=== PATIENT | male | born 1955 | race Caucasian/White ===

== ENCOUNTER 2018-05-20 13:55 | Outpatient (CLI) | payer BC, OTHER ==
--- NOTE | 2018-05-20 16:17 | CT ---
CT HEAD NONCONTRAST: 05/20/18 HISTORY: Fall. Head injury. Vertigo. Headache. FINDINGS: No comparison. Within the posterolateral aspect of the left posterior fossa is a slightly heterogeneo us hyperdense mass with broad base to the inner calvarium. It measures up to 3.8 x 3.0 cm greatest di ameters. Large amount of surrounding vasogenic edema in the left cerebellar hemisphere with approxima tely 0.9 cm rightward shift of the fourth ventricle. There is effacement of the basilar cisterns. The mass demonstrates characteristics suggestive of an extra-axial process. At the medial margin of the left frontal lobe, a 0.4 cm hyperdense lesion is favored to be cortical. Minimal distention of the temporal horns of the lateral ventricles. Septum pellucidum is midline. Chr onic appearing opacification of the left mastoid air cells. IMPRESSION: Large hyperdense left posterior fossa mass, favored to be extra-axial, with large amount of surroundi ng vasogenic edema and compression of the fourth ventricle. Possible meningioma. Tiny hyperdense left medial frontal lobe hyperdense mass, favored to be cortical. This raises concern for metastatic disease. Please consider additional evaluation with MRI brain, with and without gadol inium contrast. Findings were called to Dr. Carreon at 1434 hours. Code CR POS: SARA
== END 2018-05-20 13:56 | disposition home or self-care (01) ==
LOC: NAV CT 13:55
PROVIDERS: ATTEND Family Medicine
DX: S06.9X9A Unspecified intracranial injury with loss of consciousness of unspecified duration, initial encounter (principal); R51 Headache; R22.0 Localized swelling, mass and lump, head; G93.6 Cerebral edema
CPT/HCPCS: 70450

== ENCOUNTER 2019-04-06 15:38 | Inpatient (IN) | payer BC ==
[2019-04-06] MEDS ORDERED: Baclofen 10 MG TAB PO SCH (21:00)
[2019-04-06] MEDS ORDERED: BACLOFEN 5 MG PO SCH (21:00)
[2019-04-06] MEDS ORDERED: Simvastatin 40 MG TAB PO SCH ×2 (21:00)
[2019-04-06 21:19] LABS: Bacteria/HPF 3+ HPF (None Seen); RBC/HPF 0-3 HPF (0-3); Squamous Epithelial 0-3 HPF (0-3)
[2019-04-06] MEDS: Enoxaparin Sodium 40 MG/0.4 ML SYRINGE SC SCH (23:02)
--- NOTE | 2019-04-07 03:10 | HP ---
HISTORY OF PRESENT ILLNESS: Mr. Zurita is a very pleasant 63-year-old white male, seen in my office mid May with a headache. CT scan revealed a large 3 cm cerebellar mass and a smaller frontal lobe mass. He was referred to Dr. Aakash Chavez, who proceed with a stereotactic resection of the left cerebellar tumor consistent with meningioma, and resection of left infratentorial posterior fossa meningioma. Postoperatively, he was in the intensive care unit for multiple days. Postoperative day #4, the patient was nearing discharge for home. Pathology was sent to 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 It had been invasive to his temporal bone, the petrous region, and the mastoid air cells along the sigmoid sinus and internal jugular vein. Surgery was successful in debulking the portion of the sinus. The patient was neurologically intact and doing very well with improvement even with his cerebellar findings. He was sent home on Decadron taper. The patient was discharged home on 05/30/2018, but returned back to the emergency room on 06/02/2018 secondary to severe headache that was not responsive to hydrocodone. He was seen in the emergency room and readmitted to the hospital. After significant workup, the patient was found to have hydrocephalus and the EVD was placed. Unfortunately, the patient had significant neurological decline. Unfortunately, he also developed Serratia meningitis and underwent a wound washout on 06/15/[address] Chavez. It eventually was controlled with multiple antibiotics. The patient also was found to have a right lower extremity DVT and had to have an IVC filter placed. He was started on Lovenox and then transitioned to Eliquis. Eventually, he stabilized and was transferred to [facility] in [place] on 07/09/2018. Further history is not available at this time until the patient is transferred from [facility] in [facility] to [facility] today, which is 04/06/2019. The patient did recently develop a urinary tract infection, became septic. He was treated with antibiotics and presently not on any antibiotics. He was transferred to [facility] on 04/06/2019. PRESENT MEDICATIONS: Reveal the patient is presently on the following; 1. Norvasc 10 mg daily. 2. Aspirin 81 mg daily. 3. Baclofen 5 mg at bedtime. 4. Benazepril or Lotensin 20 mg daily. 5. Voltaren 75 mg at bedtime. 6. Voltaren 75 mg p.o. b.i.d. 7. Lovenox 40 mg subcu q.24 hours. 8. The patient did have his influenza vaccine quadrivalent today, on 04/07/2019. 9. Metoprolol 100 mg daily. 10. Provigil 200 mg once daily. 11. Protonix 40 mg daily. 12. Amantadine 50 mg b.i.d. 13. Simvastatin 40 mg daily. 14. Effexor 75 mg daily. ALLERGIES: THE PATIENT IS NOTED TO BE ALLERGIC TO TOBRAMYCIN AND CEFEPIME. FAMILY HISTORY: Reveals the patient's mother has heart disease. The patient's paternal grandfather had colon cancer. The patient's maternal grandfather had kidney cancer. SOCIAL HISTORY: Reveals the patient presently does not smoke and has not for a while. The patient does have a past history of alcohol, but no drugs. The patient is . Presently, the patient has a PEG tube in the left upper quadrant, in which he gets all of his feedings through. The patient's PEG tube was started on 06/29/2018. The patient has a 16-Salvadorean urethral catheter indwelling, which has been indwelling and was placed on 04/04/2019. PAST MEDICAL HISTORY: 1. Malignant melanoma. 2. Hydrocephalus. 3. Altered mental status. 4. Hypertension. 5. Hyperlipidemia. 6. Hypoglycemia. 7. Somnolence. 8. Recent urinary tract infection. 9. Severe sepsis. 10. Status post IVC filter. 11. History of DVT. PAST SURGICAL HISTORY: 1. 07/15/2018, rosemary hole for ventricular puncture and insertion of ventricular pleural shunt on 07/21/2018. 2. Tracheostomy on 07/21/2018 along with pleurodesis of the lung. REVIEW OF SYSTEMS: Unable to be obtained because the patient is nonverbal at this time. He walked in saying his name. He does open his eyes, but does not really respond. I could not get a nod yes or no. PHYSICAL EXAMINATION: VITAL SIGNS: On arrival revealed blood pressure 116/83; this evening, blood pressure 151/84. Respirations 16 to 22, O2 saturation 95% to 96% on room air, T-max 98.9. Pulse is 98 to 99. GENERAL: This is a well-developed, well-nourished, but much older looking than expected white male, in no apparent distress at this time. HEENT: Reveals well-healed craniotomy scars. Nose and throat are somewhat dry. The patient is clean, well shaved with a mustache, well trimmed acuna. He seemed to be in no distress, but is unable to communicate to answer any of my questions. NECK: Seems to be supple without any masses, nodes, or bruits. CHEST: Clear to auscultation. No rales, no rhonchi, no wheezes, and no cough is noted. HEART: Reveals a regular rate and rhythm. Slightly tachy at 98. No murmurs, gallops, or rubs are noted. ABDOMEN: Soft, nontender with multiple abundant bowel sounds in all 4 quadrants. PEG tube is noted to be in left upper quadrant. : Reveals the patient is in the diaper and we did not remove that at this time. EXTREMITIES: Reveal rather stiff upper extremities with significant flexion contractures in the lower extremities. DIAGNOSTIC STUDIES: Radiology results over the last 7 days include; 1. MRI of the brain without IV contrast, which was done 04/01/2019 secondary to altered mental status. Impression, limited evaluation of possible punctate acute infarct in the parasagittal left anterior frontal lobe. No gross evidence of an acute infarct or hemorrhage. 2. CT scan of the brain on 03/30/2019 reveals unremarkable internal carotid, middle cerebral arteries, anterior cerebral arteries, basilar system, posterior cerebral arteries and venous opacifications. 3. CTA of the neck revealed no flow-limiting stenosis and no acute findings. 4. CT of the brain on 03/30/2019 revealed chronic ischemic and surgical changes without discernible acute infarct or hemorrhage. 5. Esophageal swallowing function with cine video done 03/29/2019 revealed history of dysphagia with trace laryngeal penetration with thin liquids. 6. Urine culture reveals Pseudomonas sensitive to tobramycin. Neurological exam done by Dr. Dumont on 04/04/2019. The patient's neurological exam at that time revealed the patient did not orient to name or follow one-step commands. Pupils were 3 mm and reactive bilaterally. There were some mild facial asymmetry with the tongue being midline. The patient had some left hemiparesis and bilateral contractures. ASSESSMENT: 1. Hydrocephalus. 2. Distant removal of malignant meningioma. 3. Status post inferior vena cava filter. 4. Severe sepsis. 5. Recent urinary tract infection. 6. Altered mental status. 7. Hypertension. 8. Hyperlipidemia. 9. Hypoglycemia. 10. Somnolence. 11. Dysphagia. 12. Right-sided weakness. PLAN: 1. The patient has been transferred to the SNF Unit at [facility] for physical therapy and occupational therapy. The patient will be followed closely with a repeat urinalysis and culture and sensitivity. The patient was started on amikacin for 4 days and changed to tobramycin changed back to amikacin to finish 7 days on antibiotics. 2. We will continue to monitor the patient's toxic metabolic encephalopathy since his mentation fluctuates. His amantadine was stopped and Provigil was started. He continues to have transient worsening weakness in the face of negative CT angiogram as possible small CVA by MRI. 3. Start aspirin. 4. Decrease tube feedings as the patient is able to adjust and improved with his dysphagia. 5. Continue statin drug for his hyperlipidemia. 6. Continue to monitor the patient for anemia. 7. Monitor the patient closely for constipation. 8. Consider magnesium citrate if needed. 9. Speech therapy. 10. Physical therapy and occupational therapy evaluation. Job ID: [id number]
[2019-04-07] MEDS ORDERED: Bisacodyl 10 MG SUPP PR PRN (06:46)
[2019-04-07] MEDS ORDERED: AMANTADINE 10 MG/ML PER TUBE SCH (07:30)
[2019-04-07] MEDS ORDERED: AMANTADINE HCL PO SCH (07:30)
[2019-04-07] MEDS ORDERED: AMANTADINE 10 MG/ML PO SCH (07:30)
[2019-04-07] MEDS: Famotidine 20 MG TAB PER TUBE SCH ×3 (08:24→19:51)
[2019-04-07] MEDS: Venlafaxine HCl 25 MG TAB PER TUBE SCH (08:45)
[2019-04-07] MEDS: Aspirin Chewable 81 MG TAB PER TUBE SCH ×3 (08:45→09:55)
[2019-04-07] MEDS: Docusate Sodium 100 MG/10 ML UDCUP PER TUBE SCH ×5 (08:45→19:51)
[2019-04-07] MEDS: Tamsulosin HCl 0.4 MG CAP PO SCH (08:46)
[2019-04-07] MEDS: Pantoprazole 40 MG GRANULES PACKET PER TUBE SCH ×2 (08:47→09:54)
[2019-04-07] MEDS: Polyethylene Glycol 3350 17 GM Packet PER TUBE SCH (08:47)
[2019-04-07] MEDS: Ascorbic Acid 500 mg Chewable Tablet PER TUBE SCH (08:47)
[2019-04-07] MEDS: Modafinil 100 MG TAB PER TUBE SCH (08:47)
[2019-04-07] MEDS ORDERED: Aspirin 81 mg Enteric Coated Tablet PO SCH ×2 (09:00)
[2019-04-07] MEDS ORDERED: Non-Formulary Item 1 EACH (Omeprazole [Omeprazole] 40 MG) PO SCH (09:00)
[2019-04-07] MEDS ORDERED: Venlafaxine HCl 25 MG TAB PO SCH (09:00)
[2019-04-07] MEDS ORDERED: Amlodipine 5 MG TAB PO SCH (09:00)
[2019-04-07] MEDS ORDERED: METOPROLOL SUCCINATE 100 MG PO SCH (09:00)
[2019-04-07] MEDS ORDERED: VENLAFAXINE HCL 75 MG PO SCH (09:00)
[2019-04-07] MEDS ORDERED: Modafinil 100 MG TAB PO SCH ×2 (09:00)
[2019-04-07] MEDS ORDERED: Amlodipine 5 MG TAB PER TUBE SCH (09:00)
[2019-04-07] MEDS ORDERED: FLU VACC QS2019-20(6MOS UP)/PF 60 MCG/0.5 ML SYRINGE IM ONE (09:00)
[2019-04-07] MEDS ORDERED: Enoxaparin Sodium 40 MG/0.4 ML SYRINGE SC SCH (09:00)
[2019-04-07] MEDS ORDERED: Non-Formulary Item 1 EACH (Amlodipine Besylate/Benazepril [Amlodipine Besylate/Benazepril PO SCH (09:00)
[2019-04-07 12:22] LABS: Bilirubin Negative (Negative); Blood, Urine Trace (Negative); Clarity Cloudy (Clear); Glucose, Urine (Dipstick) Negative (Negative); Leukocyte Moderate (Negative); Nitrite Negative (Negative); Protein, Urine (Dipstick) Trace mg/dL (Neg-Trace); Urobilinogen 0.2 mg/dL (Less than 2)
[2019-04-07 12:29] LABS: RBC/HPF 0-3 HPF (0-3); Squamous Epithelial 0-3 HPF (0-3)
[2019-04-07 12:30] LABS: Bacteria/HPF 2+ HPF (None Seen)
--- NOTE | 2019-04-07 16:44 | PRG ---
DATE OF SERVICE: 04/07/2019 SUBJECTIVE: Mr. Zurita is a pleasant 63-year-old white male, who had a large glioblastoma removed by Dr. Aakash Chavez on 05/26/2018. He did well, was sent home, returned with meningitis caused by Serratia. He had several complications, admitted to the intensive care unit. Eventually, he was controlled, but then went to an LTAC for physical therapy and occupational therapy in [place]. He has been in out of the hospital and LTAC since then. He was transferred to [facility] on 04/06/2019 for physical therapy and occupational therapy, status post small CVA along with urinary tract infection and sepsis approximately 2 weeks ago. He is here to increase his strength, stamina, and hopefully to get some speech therapy so he can start swallowing again and eating. OBJECTIVE: VITAL SIGNS: Today reveal blood pressure this morning 151/84, pulse 97 to 98, respirations 18 to 22, T-max 98.3, O2 saturation 95% on room air. Urinalysis revealed 7 to 10 WBCs per high-power field as a repeat today of 11/20 per high-power field. Culture and sensitivity are pending. Laboratory for tomorrow morning is done including CBC, comprehensive metabolic panel, pre-albumin and C-reactive protein. PHYSICAL EXAMINATION: GENERAL: This is a well-developed, white male who looks much older than stated age. The patient does look around and responded when I asked him if he would try to say some words, and he said "try." The patient does not respond spontaneous to yes and no questions with words, but will nod yes or no. HEENT: Reveals well-healed craniotomy scars. Nose and throat are slightly dry. NECK: Supple without masses, nodes, or bruits. CHEST: Clear to auscultation. No rales, no rhonchi, no wheezes, and no cough is noted. HEART: Reveals a regular rate and rhythm, still tachy at 97 to 98. No murmurs, gallops, or rubs are noted. ABDOMEN: Soft, nontender with lots of bowel sounds. The patient continues to have significant flexion contractures in his right lower extremity, which can be worked out straight, but has significant difficulty doing that. His right upper extremities are somewhat stiff, but not flexion contraction. : Deferred. Blum catheter is in place. ASSESSMENT: 1. Post removal of malignant glioblastoma approximately 11 months ago. 2. Hydrocephalus with shunt. 3. Recent severe sepsis. 4. Recent urinary tract infection. 5. Altered mental status. 6. Hypertension. 7. Hyperlipidemia. 8. Hypoglycemia. 9. Dysphagia. 10. Right-sided weakness. 11. Somnolence. 12. Status post inferior vena cava filter. 13. Generalized weakness. PLAN: 1. Continue to monitor the patient's blood pressure closely, adjust medications if needed. 2. Continue to monitor the patient's urine and await culture and sensitivities. 3. Repeat lab work tomorrow morning. 4. Continue physical therapy and occupational therapy. 5. Continue consultation for speech therapy. 6. Continue aspirin. 7. Continue tube feedings at this time until the patient is cleared to swallow. 8. Continue statin drugs. 9. Continue to monitor the patient for anemia. 10. Monitor the patient for constipation. 11. Physical therapy, occupational therapy, and speech therapy. Job ID: [id number]
[2019-04-07] MEDS: Atorvastatin Calcium 20 MG TAB PER TUBE SCH (19:51)
[2019-04-07] MEDS: Enoxaparin Sodium 40 MG/0.4 ML SYRINGE SC SCH (19:54)
[2019-04-07] MEDS ORDERED: Baclofen 10 MG TAB PER TUBE SCH (21:00)
[2019-04-07] MEDS ORDERED: Simvastatin 40 MG TAB PER TUBE SCH (21:00)
[2019-04-08 05:25] LABS: #Eosinphils 0.2 thou/uL (0.0-0.7); #Lymphocytes 1.4 thou/uL (1.20-3.40); #Monocytes 0.4 thou/uL (0.11-0.59); #Neutrophils 4.2 thou/uL (1.40-6.50); %Basophils 0.7 % (0.0-1.0); %Eosinophils 3.5 % (0.0-10.0); %Lymphocytes 21.9 % (21.0-51.0); %Monocytes 6.7 % (0.0-10.0); %Neutrophils 67.2 % (42.0-75.0); Hemoglobin 9.6 g/dL (14.0-18.0); Mean Corpuscular HGB CONC 33.2 g/dL (32.0-36.0); Mean Corpuscular Hemoglobin 29.5 pg (27.0-31.0); Mean Corpuscular Volume 88.8 fL (78.0-98.0); Mean Platelet Volume 8.3 fL (7.4-10.4); Platelet Count 198 thou/uL (130-400); Red Blood Cell (RBC) Count 3.25 mill/uL (4.70-6.10); White Blood Cell (WBC) Count 6.3 thou/uL (4.8-10.8)
[2019-04-08 05:44] LABS: ALT (SGPT) 57 U/L (8-55); AST (SGOT) 34 U/L (5-34); Albumin 3.5 g/dL (3.4-4.8); Alkaline Phosphatase 119 U/L (40-110); Anion Gap 15 mmol/L (10-20); BUN (Urea Nitrogen) 28 mg/dL (8.4-25.7); Bilirubin, Total 0.2 mg/dL (0.2-1.2); CRP (Inflammatory) Less than 0.50 mg/dL (= or < 0.5); Calc. Creatinine Clearance 96 mL/min (70-130); Carbon Dioxide 29 mmol/L (23-31); Chloride 101 mmol/L (98-107); Estimated GFR-MDRD Greater than 90; Globulin 3.2 g/dL (2.4-3.5); Glucose 141 mg/dL (80-115); Potassium 3.7 mmol/L (3.5-5.1); Protein, Total 6.7 g/dL (5.8-8.1); Sodium 141 mmol/L (136-145)
[2019-04-08] MEDS: Multivitamins CHEW w/Iron Tablet PER TUBE SCH (08:15)
[2019-04-08] MEDS: Pantoprazole 40 MG GRANULES PACKET PER TUBE SCH (09:45)
[2019-04-08] MEDS: Tamsulosin HCl 0.4 MG CAP PO SCH (09:45)
[2019-04-08] MEDS: Ascorbic Acid 500 mg Chewable Tablet PER TUBE SCH (09:45)
[2019-04-08] MEDS: Aspirin Chewable 81 MG TAB PER TUBE SCH (09:45)
[2019-04-08] MEDS: Docusate Sodium 100 MG/10 ML UDCUP PER TUBE SCH ×3 (09:45→20:43)
[2019-04-08] MEDS: Polyethylene Glycol 3350 17 GM Packet PER TUBE SCH (09:45)
[2019-04-08] MEDS: Modafinil 100 MG TAB PER TUBE SCH (09:45)
[2019-04-08] MEDS: Famotidine 20 MG TAB PER TUBE SCH ×2 (09:45→20:44)
[2019-04-08] MEDS: Venlafaxine HCl 25 MG TAB PER TUBE SCH (09:45)
[2019-04-08] MEDS ORDERED: Baclofen 10 MG TAB PER TUBE SCH (10:30)
[2019-04-08] MEDS ORDERED: Ciprofloxacin 500 MG TAB PER TUBE SCH (13:30)
[2019-04-08] MEDS ORDERED: Sodium Chloride 0.9% 0 ML ONE (16:18)
--- NOTE | 2019-04-08 19:54 | PRG ---
DATE OF SERVICE: 04/08/2019 Mr. Zurita is a pleasant 63-year-old white male, who had a large glioblastoma removed by Dr. Aakash Chavez on 05/26/2018. He did well, was sent home, but returned with a meningitis caused by Serratia. He had several complications, admitted to the intensive care unit. This eventually was controlled and then he was transferred to [facility] in [place], [place] for PT and OT. He was transferred in and out of the LTAC back and forth to the hospital for multiple other problems including PEG tube placement, small TIAs, urinary tract infections, recurrent. He eventually was stabilized and now is being transferred out of [facility] in [place] to swing bed at [facility] for PT, OT, and Speech Therapy. Two weeks ago, he did have urinary tract infection, became septic, and has small CVA. He is here to increase his strength, stamina, and swallowing abilities. SUBJECTIVE: The patient when I saw him this morning, was more conversational to me. He did say something like what we are going to do today in a sentence to me, but it was rather rapid and quiet. I did hear that and he did answer questions and occasionally nod yes and no. He seems much more alert and awake to me today. His is not at bedside this morning. LABORATORY DATA: Reveals a white count of 6300 with a hemoglobin 9.6, hematocrit 28.9, platelet count 198,000. Electrolytes reveal sodium 141, potassium 3.7, chloride 101, carbon dioxide 29 with a BUN 28, creatinine 0.77, and GFR greater than 90. Sugar was 141. ALT was slightly elevated at 57. C-reactive protein was less than 0.5. Pre-albumin was noted to be 28. TSH was 2.05. Urinalysis revealed 11 to 20 wbc's. Culture is pending, but growing a gram-negative sandra. We did elect to put him on ciprofloxacin 500 mg b.i.d. and await the culture. I did call the lab and will be out for another day or two. OBJECTIVE: VITAL SIGNS: Reveal blood pressure today 137/89, pulse 97, respirations 18, O2 saturation 96% on room air, T-max 97.6. GENERAL: This is a well-developed, thin 63-year-old white male, in no apparent distress at this time. HEENT: Reveals normocephalic and nontraumatic cranium. Pupils are equally round and reactive. Extraocular movements intact. Nose and throat are slightly dry. NECK: Supple without masses, nodes, or bruits. CHEST: Clear to auscultation. No rales, rhonchi, or wheezes are heard. HEART: Reveals a regular rate and rhythm without murmurs, gallops, or rubs. ABDOMEN: Soft, nontender without organomegaly. Flexion contractures in right lower extremity seem a little bit better when he is sitting in a wheelchair. Right upper extremities are stiff, but not flexion contracture. : Deferred. Blum catheter is in place. I did talk with therapy. Apparently, he is having a lot of increased tone and spasm, not so much muscle contraction yet. He thinks it is less contractures or more increased muscle tone, so we will try him on some baclofen 5 mg b.i.d. IMPRESSION: 1. Status post removal of malignant glioblastoma approximately 10 months ago. 2. Hydrocephalus with shunt. 3. Severe sepsis, which was recent. 4. Recent urinary tract infection. 5. Altered mental status. 6. Hypertension. 7. Hyperlipidemia. 8. Hypoglycemia. 9. Dysphagia. 10. Right-sided weakness. 11. Somnolence. 12. Status post inferior vena cava filter. 13. Generalized weakness. 14. New urinary tract infection. We will start him on Cipro at this time. PLAN: 1. Continue to monitor the patient's blood pressure closely and adjust medications as needed. 2. Continue to monitor the patient's urine, await culture and sensitivities, but start the patient on Cipro 500 b.i.d. at this time. 3. Repeat lab work tomorrow. 4. Continue physical therapy and occupational therapy. 5. Continue speech therapy. 6. Continue aspirin. 7. Tube feedings at this time until the patient is cleared to swallow. 8. Continue statin drugs. 9. Continue to monitor the patient for anemia. 10. Monitor the patient for constipation. 11. Physical therapy, occupational therapy, and speech therapy. Job ID: [id number]
[2019-04-08] MEDS: Atorvastatin Calcium 20 MG TAB PER TUBE SCH (20:43)
[2019-04-08] MEDS: Baclofen 10 MG TAB PER TUBE SCH (20:44)
[2019-04-08] MEDS: Ciprofloxacin 500 MG TAB PER TUBE SCH (20:44)
[2019-04-08] MEDS: Enoxaparin Sodium 40 MG/0.4 ML SYRINGE SC SCH (20:45)
[2019-04-09] MEDS: Ciprofloxacin 500 MG TAB PER TUBE SCH ×2 (05:29→20:35)
[2019-04-09] MEDS: Polyethylene Glycol 3350 17 GM Packet PER TUBE SCH (08:50)
[2019-04-09] MEDS: Pantoprazole 40 MG GRANULES PACKET PER TUBE SCH (08:50)
[2019-04-09] MEDS: Modafinil 100 MG TAB PER TUBE SCH (08:50)
[2019-04-09] MEDS: Ascorbic Acid 500 mg Chewable Tablet PER TUBE SCH (08:51)
[2019-04-09] MEDS: Tamsulosin HCl 0.4 MG CAP PO SCH (08:51)
[2019-04-09] MEDS: Baclofen 10 MG TAB PER TUBE SCH ×2 (08:51→20:35)
[2019-04-09] MEDS: Venlafaxine HCl 25 MG TAB PER TUBE SCH (08:51)
[2019-04-09] MEDS: Famotidine 20 MG TAB PER TUBE SCH ×2 (08:52→20:35)
[2019-04-09] MEDS: Aspirin Chewable 81 MG TAB PER TUBE SCH (08:52)
[2019-04-09] MEDS: Multivitamins CHEW w/Iron Tablet PER TUBE SCH (08:52)
[2019-04-09] MEDS: Docusate Sodium 100 MG/10 ML UDCUP PER TUBE SCH ×3 (08:52→20:35)
--- NOTE | 2019-04-09 15:17 | PRG ---
DATE OF SERVICE: 04/09/2019 SUBJECTIVE: Mr. Zurita is a very pleasant 63-year-old white male patient of mine, who had a large glioblastoma. It was removed by Dr. Aakash Chavez on 05/26/2018. The patient did very well, sent home but returned with meningitis caused by Serratia. He had a maggy course for several months and was in and out of the hospital and in and out of the LTAC. Eventually, he was stabilized and transferred to rehab facility. He did fairly well, ended up back at [facility] in [place] with sepsis, urinary tract infection, and another stroke. Eventually, he was stabilized and now was transferred to [facility] in [place] for physical therapy, occupational therapy, and speech therapy. The patient is actually much more awake and alert and say "paramjit cee, how are you doing today" is what he told me this morning. The only difference we have done is we have started him on Cipro 500 mg b.i.d. for 10 days, which is 20 doses because of a recurrent urinary tract infection which he is growing gram-negative rods in which the sensitivity is still not available yet. The other thing we have done is increase the baclofen from 5 mg once a day at bedtime to 5 mg b.i.d. for his intense tone and spasticity. OBJECTIVE: VITAL SIGNS: Today reveal blood pressure 146/78, pulse 91 to 99, respirations 19 to 20, O2 saturation 94% to 99% on room air, T-max 98.7. PHYSICAL EXAMINATION: GENERAL: This is a well-developed, well-nourished, pleasant 63-year-old white male, in no apparent distress at this time. HEENT: Normocephalic and nontraumatic cranium. Pupils are equal, round, and reactive. Extraocular movements are intact. Nose and throat are still dry. NECK: Supple without masses, nodes, or bruits. CHEST: Clear to auscultation. No rales, rhonchi, wheezes, or cough is heard. HEART: Reveals a regular rate and rhythm without murmurs, gallops, or rubs. ABDOMEN: Soft, nontender without organomegaly. Normal bowel sounds are noted. : Deferred. EXTREMITIES: Significant increase in tone and possible some flexion contractures in his right leg. Physical therapy and thinks he has more increased muscle tone and not really flexion contractures. The patient has been started on baclofen 5 mg b.i.d. and we may increase that. IMPRESSION: 1. Surgical excision of malignant glioblastoma about 10 months ago. 2. Hydrocephalus with shunt. 3. Recent recurrent urinary tract infection, presently on Cipro 500 b.i.d. 4. Recent sepsis. 5. Metabolic encephalopathy, slowly clearing. 6. Altered mental status, improving. 7. Hypertension. 8. Hyperlipidemia. 9. Hyperglycemia. 10. Dysphagia. 11. The patient did swallow some ice chips today. 12. Right-sided weakness. 13. Somnolence. 14. Status post inferior vena cava filter. 15. Generalized weakness. PLAN: 1. Continue Cipro 500 mg b.i.d. for a total of 10 days until the patient's culture and sensitivity return. 2. Continue to get the patient out of bed as much as possible. 3. Continue to monitor the patient's blood pressure closely. 4. Continue aspirin. 5. Continue tube feedings, which we may progress to bolus feedings next week. 6. Continue statin drugs. 7. Continue to monitor the patient for anemia. 8. Continue physical therapy and occupational therapy. 9. Continue speech therapy. Job ID: [id number]
[2019-04-09] MEDS: Enoxaparin Sodium 40 MG/0.4 ML SYRINGE SC SCH (20:35)
[2019-04-09] MEDS: Atorvastatin Calcium 20 MG TAB PER TUBE SCH (20:35)
[2019-04-10] MEDS: Ciprofloxacin 500 MG TAB PER TUBE SCH ×2 (05:31→19:41)
[2019-04-10] MEDS: Polyethylene Glycol 3350 17 GM Packet PER TUBE SCH (08:31)
[2019-04-10] MEDS: Famotidine 20 MG TAB PER TUBE SCH ×2 (08:32→20:58)
[2019-04-10] MEDS: Ascorbic Acid 500 mg Chewable Tablet PER TUBE SCH (08:32)
[2019-04-10] MEDS: Tamsulosin HCl 0.4 MG CAP PO SCH (08:32)
[2019-04-10] MEDS: Venlafaxine HCl 25 MG TAB PER TUBE SCH (08:32)
[2019-04-10] MEDS: Baclofen 10 MG TAB PER TUBE SCH ×2 (08:32→20:58)
[2019-04-10] MEDS: Docusate Sodium 100 MG/10 ML UDCUP PER TUBE SCH ×3 (08:32→20:58)
[2019-04-10] MEDS: Pantoprazole 40 MG GRANULES PACKET PER TUBE SCH (08:32)
[2019-04-10] MEDS: Multivitamins CHEW w/Iron Tablet PER TUBE SCH (08:32)
[2019-04-10] MEDS: Modafinil 100 MG TAB PER TUBE SCH (08:33)
[2019-04-10] MEDS: Aspirin Chewable 81 MG TAB PER TUBE SCH (08:33)
--- NOTE | 2019-04-10 15:14 | PRG ---
DATE OF SERVICE: 04/10/2019 SUBJECTIVE: Mr. Zurita is resting in bed and denies any complaints. His spouse is in the room. He is tolerating his feedings. OBJECTIVE: VITAL SIGNS: He is afebrile, heart rate 94, respirations 16, oxygen saturation 97% on room air, blood pressure 143/82. CARDIOVASCULAR SYSTEM: S1 and S2 plus. RESPIRATORY SYSTEM: Normval vesicular breath sounds. ABDOMEN: Soft and nontender. Bowel sounds heard in all quadrants. EXTREMITIES: Without cyanosis or clubbing. CENTRAL NERVOUS SYSTEM: Significant deconditioning. IMPRESSION: 1. Serratia meningitis. 2. Hydrocephalus, requiring external ventricular drain placement. 3. Hypertension. 4. Dyslipidemia. 5. Right-sided weakness, likely due to the cerebrovascular accident. PLAN: 1. Continue current medications. 2. Nutritional support with tube feeding. 3. Aspiration precautions. 4. PEG tube care. 5. DVT and stress ulcer prophylaxis. 6. Continue Cipro. 7. Physical therapy. 8. Discussed with the patient and spouse. Job ID: [id number]
[2019-04-10] MEDS: Atorvastatin Calcium 20 MG TAB PER TUBE SCH (20:58)
[2019-04-10] MEDS: Enoxaparin Sodium 40 MG/0.4 ML SYRINGE SC SCH (20:59)
[2019-04-11] MEDS: Ciprofloxacin 500 MG TAB PER TUBE SCH ×2 (06:09→20:40)
[2019-04-11] MEDS: Baclofen 10 MG TAB PER TUBE SCH ×2 (08:25→20:40)
[2019-04-11] MEDS: Famotidine 20 MG TAB PER TUBE SCH ×2 (08:25→20:41)
[2019-04-11] MEDS: Pantoprazole 40 MG GRANULES PACKET PER TUBE SCH (08:25)
[2019-04-11] MEDS: Polyethylene Glycol 3350 17 GM Packet PER TUBE SCH (08:25)
[2019-04-11] MEDS: Docusate Sodium 100 MG/10 ML UDCUP PER TUBE SCH ×3 (08:25→20:40)
[2019-04-11] MEDS: Ascorbic Acid 500 mg Chewable Tablet PER TUBE SCH (08:25)
[2019-04-11] MEDS: Venlafaxine HCl 25 MG TAB PER TUBE SCH (08:25)
[2019-04-11] MEDS: Modafinil 100 MG TAB PER TUBE SCH (08:26)
[2019-04-11] MEDS: Tamsulosin HCl 0.4 MG CAP PO SCH (08:26)
[2019-04-11] MEDS: Multivitamins CHEW w/Iron Tablet PER TUBE SCH (08:26)
[2019-04-11] MEDS: Aspirin Chewable 81 MG TAB PER TUBE SCH (08:26)
--- NOTE | 2019-04-11 15:24 | PRG ---
DATE OF SERVICE: 04/11/2019 SUBJECTIVE: Mr. Zurita is doing the same. Tolerating his feedings. OBJECTIVE: VITAL SIGNS: He is afebrile. Heart rate 104, respirations 18, oxygen saturation 96% on room air, blood pressure 169/86. CARDIOVASCULAR: S1, S2 plus. RESPIRATORY: Normal vesicular breath sounds. ABDOMEN: Soft, nontender. Bowel sounds heard in all quadrants. EXTREMITIES: Without cyanosis or clubbing. LABORATORY VALUES: Urine culture is growing Pseudomonas. Sensitivities are pending. He is currently on Cipro. We will await sensitivities. IMPRESSION: 1. Pseudomonas urinary tract infection. 2. Hydrocephalus and recent cerebrovascular accident. 3. Hypertension. 4. Dyslipidemia. 5. Muscle spasticity. 6. Benign prostatic hypertrophy. 7. Depression. PLAN: 1. Continue current medications. 2. Aspiration precautions. 3. Nutritional support. 4. DVT and stress ulcer prophylaxis. 5. Decubitus precautions. 6. Await sensitivity. 7. Dr. Carreon back [facility]. Job ID: [id number]
[2019-04-11] MEDS: Enoxaparin Sodium 40 MG/0.4 ML SYRINGE SC SCH (20:40)
[2019-04-11] MEDS: Atorvastatin Calcium 20 MG TAB PER TUBE SCH (20:40)
[2019-04-12] MEDS: Ciprofloxacin 500 MG TAB PER TUBE SCH ×2 (05:37→20:38)
[2019-04-12] MEDS: Ascorbic Acid 500 mg Chewable Tablet PER TUBE SCH (17:33)
[2019-04-12] MEDS: Baclofen 10 MG TAB PER TUBE SCH ×2 (17:34→20:37)
[2019-04-12] MEDS: Docusate Sodium 100 MG/10 ML UDCUP PER TUBE SCH ×3 (17:34→20:38)
[2019-04-12] MEDS: Famotidine 20 MG TAB PER TUBE SCH ×2 (17:34→20:37)
[2019-04-12] MEDS: Modafinil 100 MG TAB PER TUBE SCH (17:34)
[2019-04-12] MEDS: Multivitamins CHEW w/Iron Tablet PER TUBE SCH (17:34)
[2019-04-12] MEDS: Venlafaxine HCl 25 MG TAB PER TUBE SCH (17:35)
[2019-04-12] MEDS: Polyethylene Glycol 3350 17 GM Packet PER TUBE SCH (17:35)
[2019-04-12] MEDS: Pantoprazole 40 MG GRANULES PACKET PER TUBE SCH (17:35)
[2019-04-12] MEDS: Tamsulosin HCl 0.4 MG CAP PO SCH (17:35)
[2019-04-12] MEDS: Aspirin Chewable 81 MG TAB PER TUBE SCH (18:03)
[2019-04-12] MEDS: Ondansetron ODT 4 MG TAB PO PRN (18:04)
--- NOTE | 2019-04-12 20:09 | PRG ---
DATE OF SERVICE: 04/12/2019 SUBJECTIVE: He is a very pleasant 63-year-old white male with a large glioblastoma removed by Dr. Aakash Chavez on 05/26/2018. Did well but developed meningitis postop, but had a maggy course for several months. In and out of the hospital LTAC eventually stabilized at [facility] in [place], status post sepsis, urinary tract infection, and another stroke. He was transferred to [facility] to SNF unit, Physical Therapy, Occupational Therapy, and Speech Therapy. The patient is actually doing very well, but over the weekend, had difficulty with his PEG tube. He was clogged, nonclogged, and clogged again. This morning, we were unable to give any medications, and we sent him to [facility] for placement his PEG tube. He came back late this evening at 4 o'clock to re-administer medications as needed. OBJECTIVE: VITAL SIGNS: Today, blood pressure this evening 147/87, pulse 107 to 100, respirations 20, O2 saturation 94% to 97% on room air, T-max 98.2. GENERAL: This is a well-developed, well-nourished, very pleasant white male, who is not very responsive this morning, sleepy, sitting up in his chair. HEENT: Normocephalic and nontraumatic cranium. Well-healed craniotomy. Nose and throat are dry. NECK: Supple without masses, nodes, or bruits. CHEST: Clear to auscultation. No rales, rhonchi, wheezes are heard. HEART: Regular rate and rhythm without murmurs, gallops, or rubs. ABDOMEN: Soft, nontender without organomegaly. PEG tube is definitely old and somewhat brittle and definitely plugged. I was unable to dislodge it, and so therefore, sent him to [facility] for placement. : Deferred with Blum catheter in place. EXTREMITIES: No clubbing, cyanosis, or edema. LABORATORY DATA: Sensitivities on the Pseudomonas reveal the patient is resistant to Cipro, intermediate to gentamicin, sensitive to tobramycin. We will contact Dr. Shaw tomorrow about starting him on tobramycin or see if he has any other recommendations. ASSESSMENT: 1. Urinary tract infection with Pseudomonas, sensitive to tobramycin. 2. Metabolic encephalopathy, slowly clearing. 3. Hypertension. 4. Hyperlipidemia. 5. Hyperglycemia. 6. Dysphagia. 7. Plugged PEG tube, which had to be replaced today. 8. The patient still allowed to have some ice chips. 9. Right-sided weakness. 10. Somnolence. 11. Status post inferior vena cava filter. 12. Generalized weakness. 13. Hydrocephalus with shunt. 14. Surgical excision of malignant glioblastoma about 10 months ago. PLAN: 1. We will stop Cipro and most likely start tobramycin in his IV. 2. Continue to get the patient out of bed as much as possible. 3. Continue to monitor the patient's blood pressure closely. 4. Continue aspirin. 5. Continue tube feedings, which may progress to bolus feedings next week. 6. Continue statin drugs. 7. Continue to monitor the patient for anemia. 8. Continue physical therapy and occupational therapy. 9. Continue speech therapy. Job ID: [id number]
[2019-04-12] MEDS: Enoxaparin Sodium 40 MG/0.4 ML SYRINGE SC SCH (20:37)
[2019-04-12] MEDS: Atorvastatin Calcium 20 MG TAB PER TUBE SCH (20:38)
[2019-04-13] MEDS: Ciprofloxacin 500 MG TAB PER TUBE SCH ×2 (05:14→20:51)
[2019-04-13] MEDS: Aspirin Chewable 81 MG TAB PER TUBE SCH (08:24)
[2019-04-13] MEDS: Ascorbic Acid 500 mg Chewable Tablet PER TUBE SCH (08:24)
[2019-04-13] MEDS: Docusate Sodium 100 MG/10 ML UDCUP PER TUBE SCH ×3 (08:25→20:50)
[2019-04-13] MEDS: Baclofen 10 MG TAB PER TUBE SCH ×2 (08:25→20:51)
[2019-04-13] MEDS: Tamsulosin HCl 0.4 MG CAP PO SCH (08:26)
[2019-04-13] MEDS: Pantoprazole 40 MG GRANULES PACKET PER TUBE SCH (08:26)
[2019-04-13] MEDS: Polyethylene Glycol 3350 17 GM Packet PER TUBE SCH (08:26)
[2019-04-13] MEDS: Famotidine 20 MG TAB PER TUBE SCH ×2 (08:26→20:51)
[2019-04-13] MEDS: Multivitamins CHEW w/Iron Tablet PER TUBE SCH (08:26)
[2019-04-13] MEDS: Modafinil 100 MG TAB PER TUBE SCH (08:26)
[2019-04-13] MEDS: Venlafaxine HCl 25 MG TAB PER TUBE SCH (08:27)
[2019-04-13] MEDS ORDERED: D MANNOSE PER TUBE SCH (12:15)
[2019-04-13 15:34] LABS: Bilirubin Negative (Negative); Blood, Urine Moderate (Negative); Clarity Clear (Clear); Glucose, Urine (Dipstick) Negative (Negative); Leukocyte Large (Negative); Nitrite Negative (Negative); Protein, Urine (Dipstick) Trace mg/dL (Neg-Trace); Urobilinogen 0.2 mg/dL (Less than 2)
[2019-04-13 16:56] LABS: Urine Culture Reflex No No
[2019-04-13 17:05] LABS: Bacteria/HPF 2+ HPF (None Seen); WBC/HPF Greater than 50 HPF (0-3)
[2019-04-13] MEDS: Enoxaparin Sodium 40 MG/0.4 ML SYRINGE SC SCH (20:50)
[2019-04-13] MEDS: Atorvastatin Calcium 20 MG TAB PER TUBE SCH (20:51)
--- NOTE | 2019-04-13 22:37 | PRG ---
DATE OF SERVICE: 04/13/2019 SUBJECTIVE: Mr. Zurita is a 63-year-old white male, who had a large glioblastoma removed by Dr. Aakash Chavez on 05/26/2018. Postoperatively, he did very well, but developed meningitis. Postop, he had a maggy course after his meningitis and was in the [facility] and acute-care hospitals in [place]. Most recently, he became septic with urinary tract infection and other stroke. He was eventually stabilized and was transferred from [facility] to [facility] on 04/06/2019. The patient has actually been doing very well in his therapy and begin to talk and become more responsive. We have been doing routine labs and urinalysis came back with increased white cells. We did grow out Pseudomonas, which was resistant to everything except for tobramycin. It is noted that he is allergic to tobramycin. I did contact Dr. Shaw for help with this case. He says he will do some review of the patient's labs and urine, and I told him I would re-order some labs and repeat urinalysis. He states there are some medications, specifically Zerbaxa that we may be have to run some susceptibilities on and get an approval for that medication. At this time, we will continue to investigate. The patient does not appear to be septic or symptomatic at all. OBJECTIVE: VITAL SIGNS: Today reveal blood pressure 143/77, pulse 96 to 120s, respirations 20, O2 saturations 95% to 96% on room air, T-max 97.8. GENERAL: This is a well-developed, well-nourished, alert and occasionally talkative white male, in no apparent distress at this time. He has no complaints of pain anywhere. HEENT: Reveals normocephalic and nontraumatic cranium. Craniotomy scar is well healed. Nose and throat are slightly dry. NECK: Supple without masses, nodes, or bruits. CHEST: Clear to auscultation. No rales, rhonchi, wheezes, or cough is noted. HEART: Reveals a regular rate and rhythm without murmurs, gallops, or rubs. ABDOMEN: Soft, nontender without organomegaly. New PEG tube is in place and working well. GENITOURINARY: Deferred with Blum catheter in place. EXTREMITIES: Reveal no clubbing, cyanosis, or edema. ASSESSMENT: 1. Possible urinary tract infection with Pseudomonas, although might be colonization. 2. Metabolic encephalopathy, continues to clear. 3. Hypertension. 4. Hyperlipidemia. 5. Hyperglycemia. 6. Dysphagia. 7. PEG tube which has been replaced yesterday. 8. The patient is allowed ice chips per Speech therapy. 9. Right-sided weakness. 10. Somnolence, much improved. 11. Status post inferior vena cava filter. 12. Generalized weakness. 13. Hydrocephalus with shunt. 14. Surgical incision for malignant glioblastoma on 05/26/2018. PLAN: 1. Dr. Shaw recommends stopping the Cipro since most likely is not going to do any good at all. 2. Continue to keep the patient out of bed as much as possible in sitting. 3. Continue to monitor the patient's blood pressure closely. 4. Continue tube feedings and may try to wean that over to bolus feedings. 5. Continue present medications. 6. Appreciate Dr. Shaw' assistance with this interesting and complicated patient. 7. Continue Physical Therapy and Occupational Therapy. 8. Continue Speech Therapy. Job ID: [id number]
[2019-04-14] MEDS: Ciprofloxacin 500 MG TAB PER TUBE SCH ×2 (05:07→20:45)
[2019-04-14 06:04] LABS: ALT (SGPT) 43 U/L (8-55); AST (SGOT) 23 U/L (5-34); Albumin 3.3 g/dL (3.4-4.8); Alkaline Phosphatase 113 U/L (40-110); Anion Gap 13 mmol/L (10-20); BUN (Urea Nitrogen) 26 mg/dL (8.4-25.7); Bilirubin, Total 0.2 mg/dL (0.2-1.2); Calc. Creatinine Clearance 98 mL/min (70-130); Calcium 9.5 mg/dL (7.8-10.44); Carbon Dioxide 30 mmol/L (23-31); Chloride 101 mmol/L (98-107); Estimated GFR-MDRD Greater than 90; Globulin 3.1 g/dL (2.4-3.5); Glucose 120 mg/dL (80-115); Potassium 3.9 mmol/L (3.5-5.1); Protein, Total 6.4 g/dL (5.8-8.1); Sodium 140 mmol/L (136-145)
[2019-04-14] MEDS: Venlafaxine HCl 25 MG TAB PER TUBE SCH (08:04)
[2019-04-14] MEDS: Multivitamins CHEW w/Iron Tablet PER TUBE SCH (08:04)
[2019-04-14] MEDS: Docusate Sodium 100 MG/10 ML UDCUP PER TUBE SCH ×3 (08:04→20:45)
[2019-04-14] MEDS: Polyethylene Glycol 3350 17 GM Packet PER TUBE SCH (08:05)
[2019-04-14] MEDS: Tamsulosin HCl 0.4 MG CAP PO SCH (08:05)
[2019-04-14] MEDS: Famotidine 20 MG TAB PER TUBE SCH ×2 (08:05→20:45)
[2019-04-14] MEDS: Ascorbic Acid 500 mg Chewable Tablet PER TUBE SCH (08:05)
[2019-04-14] MEDS: Aspirin Chewable 81 MG TAB PER TUBE SCH (08:05)
[2019-04-14] MEDS: Pantoprazole 40 MG GRANULES PACKET PER TUBE SCH (08:05)
[2019-04-14] MEDS: Modafinil 100 MG TAB PER TUBE SCH (08:06)
[2019-04-14] MEDS: Baclofen 10 MG TAB PER TUBE SCH ×2 (08:06→20:45)
[2019-04-14 09:28] LABS: #Eosinphils 0.3 thou/uL (0.0-0.7); #Lymphocytes 1.7 thou/uL (1.20-3.40); #Monocytes 0.5 thou/uL (0.11-0.59); #Neutrophils 5.2 thou/uL (1.40-6.50); %Basophils 0.2 % (0.0-1.0); %Eosinophils 3.7 % (0.0-10.0); %Lymphocytes 21.8 % (21.0-51.0); %Monocytes 6.2 % (0.0-10.0); %Neutrophils 68.2 % (42.0-75.0); Hemoglobin 10.3 g/dL (14.0-18.0); Mean Corpuscular HGB CONC 32.6 g/dL (32.0-36.0); Mean Corpuscular Hemoglobin 29.7 pg (27.0-31.0); Mean Corpuscular Volume 90.9 fL (78.0-98.0); Mean Platelet Volume 9.6 fL (7.4-10.4); Platelet Count 197 thou/uL (130-400); RBC Distribution Width 14.1 % (11.5-14.5); Red Blood Cell (RBC) Count 3.46 mill/uL (4.70-6.10); White Blood Cell (WBC) Count 7.6 thou/uL (4.8-10.8)
[2019-04-14] MEDS: D MANNOSE PER TUBE SCH (12:10)
--- NOTE | 2019-04-14 18:21 | PRG ---
DATE OF SERVICE: 04/14/2019 SUBJECTIVE: Mr. Zurita is a 63-year-old white male, who had a large glioblastoma removed by Dr. Aakash Chavez on 05/26/2018. Postoperatively, he did well, went home, but then returned with meningitis. After that, he had a maggy course because meningitis was infected by Serratia, which was difficult to kill. He is in and out of the [facility] and acute care hospitals in [place]. Most recently, he became septic with his urinary tract infection and another stroke. At this time, he was stabilized and transferred from [facility] to [facility] for physical therapy and occupational therapy. The patient has been more responsive, a little more alert, and sitting up in his wheelchair. He is responding to questions and doing better. We did have some urinalysis done yesterday after did discuss with Dr. Shaw him growing Pseudomonas, which was only sensitive to tobramycin. Urinalysis yesterday showed greater than 50 wbc's per high-power field, but he was not symptomatic. He has not had fever, chills, or any other symptoms. Today, his white count was 7600 with hemoglobin 10.3, hematocrit 31.4, no shift. Sodium today was 140, potassium 3.9, chloride 101, carbon dioxide 30 with a BUN of 26, creatinine 0.75, and GFR greater than 90. His glucose this morning was 120. He states he has no pain. He feels good and he is responding fairly well. PHYSICAL EXAMINATION: GENERAL: This is a well-developed, well-nourished, very pleasant 63-year-old white male, in no apparent distress at this time. He is found today sitting up in his wheelchair with his in the room. I did answer all their questions. HEENT: Normocephalic and nontraumatic cranium. Pupils equally round and reactive. Nose and throat are still slightly dry. Craniotomy scar is well healed. NECK: Supple without masses, nodes, or bruits. CHEST: Clear to auscultation. No rales, rhonchi, wheezes, or cough is noted. HEART: Reveals a regular rate and rhythm without murmurs, gallops, or rubs. ABDOMEN: Soft, nontender without organomegaly. New PEG tube is located in the same place with old PEG tube. It is functioning very well. GENITOURINARY: Deferred with Blum catheter in place. The patient's is interested in getting that Blum out eventually, so she can take him home. EXTREMITIES: Reveal no clubbing, cyanosis, or edema with more flexion contractures and spasticity in the right leg and in the left leg. ASSESSMENT: 1. Leukocytosis in the patient's urine. 2. Pseudomonas growing in the patient's culture and sensitivity. 3. I did discuss this with Dr. Shaw, who is doing research to see if the Pseudomonas is sensitive or it actually may be colonized. 4. Metabolic encephalopathy, continues to clear. 5. Hypertension, stable. 6. Hyperlipidemia. 7. Hyperglycemia. 8. Dysphagia. 9. PEG tube replaced 2 days ago and functioning well. 10. The patient is tolerating ice chips well per Speech Therapy. 11. Right-sided weakness. 12. Somnolence is much improved. 13. Status post inferior vena cava filter. 14. Generalized weakness. 15. Hydrocephalus with shunt. 16. Surgical excision of malignant glioblastoma on 05/26/2018. PLAN: 1. We did stop his Cipro. 2. Keep the patient out of bed as much as possible. 3. Continue to monitor the patient's blood pressure closely. 4. Continue tube feedings and try to wean over to a bolus feedings as able. 5. Continue present medications. 6. Appreciate Dr. Shaw' assistance in this complicated patient. 7. Continue PT and OT. 8. Continue Speech Therapy. 9. We will continue to follow the patient closely. Job ID: [id number]
[2019-04-14] MEDS: Atorvastatin Calcium 20 MG TAB PER TUBE SCH (20:45)
[2019-04-14] MEDS: Enoxaparin Sodium 40 MG/0.4 ML SYRINGE SC SCH (20:45)
[2019-04-14] MEDS: MELATONIN 10 MG PER TUBE SCH (20:46)
[2019-04-15] MEDS: Ciprofloxacin 500 MG TAB PER TUBE SCH ×2 (06:20→20:11)
[2019-04-15] MEDS: Modafinil 100 MG TAB PER TUBE SCH (06:20)
[2019-04-15] MEDS: Docusate Sodium 100 MG/10 ML UDCUP PER TUBE SCH ×3 (09:21→20:12)
[2019-04-15] MEDS: Polyethylene Glycol 3350 17 GM Packet PER TUBE SCH (09:21)
[2019-04-15] MEDS: Pantoprazole 40 MG GRANULES PACKET PER TUBE SCH (09:21)
[2019-04-15] MEDS: Aspirin Chewable 81 MG TAB PER TUBE SCH (09:22)
[2019-04-15] MEDS: Multivitamins CHEW w/Iron Tablet PER TUBE SCH (09:22)
[2019-04-15] MEDS: Baclofen 10 MG TAB PER TUBE SCH ×2 (09:22→20:11)
[2019-04-15] MEDS: Famotidine 20 MG TAB PER TUBE SCH ×2 (09:22→20:12)
[2019-04-15] MEDS: Venlafaxine HCl 25 MG TAB PER TUBE SCH (09:22)
[2019-04-15] MEDS: Tamsulosin HCl 0.4 MG CAP PO SCH (09:22)
[2019-04-15] MEDS: Ascorbic Acid 500 mg Chewable Tablet PER TUBE SCH (09:22)
[2019-04-15] MEDS: D MANNOSE PER TUBE SCH (09:22)
[2019-04-15] MEDS: Atorvastatin Calcium 20 MG TAB PER TUBE SCH (20:11)
[2019-04-15] MEDS: Enoxaparin Sodium 40 MG/0.4 ML SYRINGE SC SCH (20:12)
[2019-04-15] MEDS: MELATONIN 10 MG PER TUBE SCH (20:13)
--- NOTE | 2019-04-15 23:39 | PRG ---
DATE OF SERVICE: 04/15/2019 SUBJECTIVE: Mr. Zurita is a 63-year-old white male, who had a large glioblastoma that was surgically removed on 05/26/[address] Chavez. Postoperatively, the patient did well and went home. Unfortunately, he returned about a week later and had a significant meningitis. He had a maggy course with meningitis, because it was infected with Serratia. He eventually was transferred to [facility] and moved back and forth between acute care hospitals in [place] in the [facility]. Most recently, he was septic, admitted to [facility] in [place] for urinary tract infection and another stroke. After he was stabilized, transferred to [facility] for PT, OT, and speech therapy. The patient has actually been doing fairly well. He is responsive, but a little less responsive today. His labs have continued to be fairly well normal. He has been growing Pseudomonas, which is resistant to everything except tobramycin which he is allergic to. The patient has been referred and discussed with Dr. Shaw and he is evaluating our options. OBJECTIVE: VITAL SIGNS: Today reveal blood pressure 136/66, pulse 88 to 96, respirations 18 to 20, O2 saturation 97% to 98% on room air, and T-max 98.2. GENERAL: This is a well-developed, well-nourished, very pleasant 63-year-old white male, who is never overtly responsive. When you ask him questions, he does quietly ponder and then answer them usually appropriately. HEENT: Normocephalic and nontraumatic cranium. Pupils are equal, round, and reactive. Extraocular movements are intact. Nose and throat are clear. Craniotomy scar is well healed. NECK: Supple without masses, nodes, or bruits. CHEST: Clear to auscultation. No rales, rhonchi, wheezes, or cough is noted. HEART: Reveals a regular rate and rhythm without murmurs, gallops, or rubs. ABDOMEN: Soft, nontender without organomegaly. New PEG tube is doing well. Eventually, we will move it to bolus feedings. : Deferred. Blum catheter is in place. EXTREMITIES: Reveal no clubbing, cyanosis, or edema. The patient has significant muscle tension and some spasticity. ASSESSMENT: 1. Leukocytosis in the patient's urine. 2. Pseudomonas growing in the patient's culture and sensitivity. 3. Dr. Shaw investigating and researching what our options are. 4. Metabolic encephalopathy, wax and wanes much improved. 5. Hypertension. 6. Hyperlipidemia. 7. Hyperglycemia. 8. Dysphagia. 9. PEG tube, doing well. 10. The patient is tolerating ice chips for speech therapy protocol. 11. Right-sided weakness. 12. Somnolence is improving. 13. Inferior vena caval filter. 14. Generalized weakness. 15. Hydrocephalus with shunt. 16. Surgical excision of malignant glioblastoma on 05/26/2018. PLAN: 1. Cipro has been stopped. 2. The patient is staying out of bed as much as possible. 3. Continue to monitor the patient's blood pressure closely. 4. Continue tube feedings and try to wean over to a bolus feeding system soon. 5. Continue present medications. 6. Appreciate Dr. Shaw' assistance with this interesting complicated patient. 7. Continue PT and OT. 8. Continue speech therapy. Job ID: [id number]
[2019-04-16 05:28] LABS: #Eosinphils 0.3 thou/uL (0.0-0.7); #Lymphocytes 1.5 thou/uL (1.20-3.40); #Monocytes 0.4 thou/uL (0.11-0.59); #Neutrophils 4.6 thou/uL (1.40-6.50); %Basophils 0.5 % (0.0-1.0); %Eosinophils 4.9 % (0.0-10.0); %Lymphocytes 22.2 % (21.0-51.0); %Monocytes 5.9 % (0.0-10.0); %Neutrophils 66.4 % (42.0-75.0); Hemoglobin 9.6 g/dL (14.0-18.0); Mean Corpuscular HGB CONC 32.2 g/dL (32.0-36.0); Mean Corpuscular Volume 89.9 fL (78.0-98.0); Mean Platelet Volume 8.5 fL (7.4-10.4); Platelet Count 208 thou/uL (130-400); RBC Distribution Width 14.1 % (11.5-14.5); Red Blood Cell (RBC) Count 3.31 mill/uL (4.70-6.10); White Blood Cell (WBC) Count 6.9 thou/uL (4.8-10.8)
[2019-04-16 05:47] LABS: ALT (SGPT) 34 U/L (8-55); AST (SGOT) 19 U/L (5-34); Albumin 3.2 g/dL (3.4-4.8); Alkaline Phosphatase 108 U/L (40-110); Anion Gap 11 mmol/L (10-20); BUN (Urea Nitrogen) 24 mg/dL (8.4-25.7); Bilirubin, Total 0.2 mg/dL (0.2-1.2); Calc. Creatinine Clearance 98 mL/min (70-130); Calcium 9.5 mg/dL (7.8-10.44); Carbon Dioxide 32 mmol/L (23-31); Chloride 101 mmol/L (98-107); Estimated GFR-MDRD Greater than 90; Globulin 3.1 g/dL (2.4-3.5); Glucose 137 mg/dL (80-115); Potassium 3.9 mmol/L (3.5-5.1); Protein, Total 6.3 g/dL (5.8-8.1); Sodium 140 mmol/L (136-145)
[2019-04-16] MEDS: Ciprofloxacin 500 MG TAB PER TUBE SCH ×2 (06:13→20:55)
[2019-04-16] MEDS: Modafinil 100 MG TAB PER TUBE SCH (06:18)
[2019-04-16] MEDS: Polyethylene Glycol 3350 17 GM Packet PER TUBE SCH (09:07)
[2019-04-16] MEDS: Docusate Sodium 100 MG/10 ML UDCUP PER TUBE SCH ×3 (09:07→20:58)
[2019-04-16] MEDS: Tamsulosin HCl 0.4 MG CAP PO SCH (09:08)
[2019-04-16] MEDS: Baclofen 10 MG TAB PER TUBE SCH ×2 (09:08→20:56)
[2019-04-16] MEDS: Famotidine 20 MG TAB PER TUBE SCH ×2 (09:08→20:55)
[2019-04-16] MEDS: Venlafaxine HCl 25 MG TAB PER TUBE SCH (09:08)
[2019-04-16] MEDS: Pantoprazole 40 MG GRANULES PACKET PER TUBE SCH (09:08)
[2019-04-16] MEDS: Aspirin Chewable 81 MG TAB PER TUBE SCH (09:08)
[2019-04-16] MEDS: Ascorbic Acid 500 mg Chewable Tablet PER TUBE SCH (09:08)
[2019-04-16] MEDS: Multivitamins CHEW w/Iron Tablet PER TUBE SCH (09:10)
[2019-04-16] MEDS: D MANNOSE PER TUBE SCH ×2 (09:11→09:16)
--- NOTE | 2019-04-16 16:21 | PRG ---
DATE OF SERVICE: 04/16/2019 SUBJECTIVE: The patient is a 63-year-old white male, who has large glioblastoma that was surgically removed on 05/26/[address] Chavez. Postoperatively, he did well and was discharged home. Unfortunately, about a week later, the patient developed significant meningitis with Serratia. He was treated with antibiotics and eventually transferred to an LTAC. From the LTAC, he was moved back and forth between [facility] and [facility] in [place], [place]. Most recently, he became septic again with urinary tract infection and another CVA. Eventually, he was stabilized and transferred from [facility] in [place] to [facility] for physical therapy, occupational therapy, and speech therapy. The patient has actually been doing fairly well and is a little bit more responsive and is slowly getting stronger. Yesterday, he was somewhat sleepy and lethargic, but this morning, he is much more awake and alert per his 's observation and she has been here all day. The patient has had a urine, which is growing out Pseudomonas, which has been sensitive only to tobramycin. I did discuss this patient with Dr. Shaw, who felt that this may be a colonization. He states he would contact the lab to run other sensitivities on special drugs that we do not have available on the formulary, that may be helpful. Otherwise, he recommended stopping his Cipro and continue to evaluate him and make sure he does not get clinically ill. OBJECTIVE: VITAL SIGNS: Today, reveal blood pressure this morning 147/70, pulse 92 to 96, respirations 18, O2 saturation 97% to 98% on room air, and T-max 98.1. GENERAL: This is a well-developed, well-nourished, await, awake and looking around and tracking white male, in no apparent distress at this time. When asked questions, he will either answer yes or no quietly or respond with a nod yes or no. HEENT: Reveals normocephalic and nontraumatic cranium. Craniotomy scar is well healed. No drainage or redness is noted. Pupils are equal, round, and reactive. Extraocular movements are intact. Nose and throat are dry. NECK: Supple without masses, nodes, or bruits. CHEST: Clear to auscultation. No rales, rhonchi, wheezes, or cough are noted. HEART: Reveals a regular rate and rhythm without murmurs, gallops, or rubs. ABDOMEN: Soft, nontender without organomegaly. New PEG tube is doing well. : Deferred. Blum catheter is in place. Blum catheter reveals some blood because apparently it got jerked and he has a little tear a couple of days ago. EXTREMITIES: Reveal no clubbing, cyanosis, or edema. Still some increased tone and spasticity. The patient is better with his baclofen b.i.d. LABORATORY DATA: This morning, reveals white count 6000 with a hemoglobin 9.6, hematocrit 29.7, and no shift. Chemistries reveal sodium of 140, potassium 3.9, chloride 101, carbon dioxide 32 with a BUN of 24, creatinine 0.75, and GFR greater than 90. Liver enzymes are unremarkable. Pre-albumin several days ago was 28. ASSESSMENT: 1. White cells in the patient's urine with a culture growing Pseudomonas, only sensitive to tobramycin, which the patient is allergic to. 2. Dr. Shaw is investigating and researching our options. 3. Metabolic encephalopathy, continues to wax and wane, but has improved today. 4. Hypertension. 5. Hyperlipidemia. 6. Hyperglycemia. 7. Dysphagia. 8. PEG tube, which has been replaced, doing well. 9. The patient continues to tolerate ice chips from speech therapy protocol per the patient's . 10. Right-sided weakness. 11. Somnolence, much improved today. 12. Inferior vena cava filter. 13. Generalized weakness. 14. Hydrocephalus with shunt. 15. Surgical excision of malignant glioblastoma on 05/26/2018. PLAN: 1. The patient's Cipro has been stopped. 2. Dr. Shaw is researching our options. 3. Continue to keep the patient out of bed as much as possible. 4. Monitor the patient's blood pressure closely. 5. Continue tube feedings and eventually wean over to bolus feedings. 6. Continue present medications. 7. Appreciate Dr. Shaw' assistance in this complicated patient. 8. Continue physical therapy and occupational therapy. 9. Continue speech therapy. Job ID: [id number]
[2019-04-16] MEDS: Atorvastatin Calcium 20 MG TAB PER TUBE SCH (20:55)
[2019-04-16] MEDS: MELATONIN 10 MG PER TUBE SCH (20:56)
[2019-04-16] MEDS: Enoxaparin Sodium 40 MG/0.4 ML SYRINGE SC SCH (20:56)
[2019-04-17] MEDS: Ciprofloxacin 500 MG TAB PER TUBE SCH ×2 (06:14→21:23)
[2019-04-17] MEDS: Modafinil 100 MG TAB PER TUBE SCH (06:14)
[2019-04-17] MEDS: Polyethylene Glycol 3350 17 GM Packet PER TUBE SCH (08:09)
[2019-04-17] MEDS: Docusate Sodium 100 MG/10 ML UDCUP PER TUBE SCH ×3 (08:09→21:23)
[2019-04-17] MEDS: Venlafaxine HCl 25 MG TAB PER TUBE SCH (08:10)
[2019-04-17] MEDS: Pantoprazole 40 MG GRANULES PACKET PER TUBE SCH (08:10)
[2019-04-17] MEDS: Famotidine 20 MG TAB PER TUBE SCH ×2 (08:10→21:23)
[2019-04-17] MEDS: Aspirin Chewable 81 MG TAB PER TUBE SCH (08:10)
[2019-04-17] MEDS: Tamsulosin HCl 0.4 MG CAP PO SCH (08:10)
[2019-04-17] MEDS: Ascorbic Acid 500 mg Chewable Tablet PER TUBE SCH (08:10)
[2019-04-17] MEDS: Multivitamins CHEW w/Iron Tablet PER TUBE SCH (08:10)
[2019-04-17] MEDS: Baclofen 10 MG TAB PER TUBE SCH ×2 (08:11→21:23)
[2019-04-17] MEDS: D MANNOSE PER TUBE SCH (08:11)
--- NOTE | 2019-04-17 14:40 | PRG ---
DATE OF SERVICE: 04/17/2019 SUBJECTIVE: Mr. Zurita is up in his chair and dozing. He is arousable. He is tolerating his PEG feeding. No family at bedside. OBJECTIVE: VITAL SIGNS: He is afebrile. Heart rate 93, respirations 16, oxygen saturation 98% on room air, blood pressure 166/76. CARDIOVASCULAR SYSTEM: S1 and S2, plus. RESPIRATORY SYSTEM: Normal vesicular breath sounds. ABDOMEN: Soft and nontender. Bowel sounds heard in all quadrants. EXTREMITIES: Without cyanosis or clubbing. CENTRAL NERVOUS SYSTEM: Deficits from his recent CVA and hydrocephalus. IMPRESSION: 1. Pseudomonas urinary tract infection, resolving. 2. Hydrocephalus and recent cerebrovascular accident, slow improvement. 3. Hypertension. 4. Dyslipidemia. 5. Muscle spasticity. 6. Benign prostatic hypertrophy. 7. Depression. PLAN: 1. Continue current medications. 2. Nutritional support with tube feeds and aspiration precaution. 3. PEG tube care. 4. DVT and stress ulcer prophylaxis. 5. Monitor neuro status. 6. Routine laboratory values. 7. Physical Therapy. Job ID: [id number]
[2019-04-17] MEDS: Atorvastatin Calcium 20 MG TAB PER TUBE SCH (21:23)
[2019-04-17] MEDS: MELATONIN 10 MG PER TUBE SCH (21:24)
[2019-04-17] MEDS: Enoxaparin Sodium 40 MG/0.4 ML SYRINGE SC SCH (21:24)
[2019-04-18] MEDS: Modafinil 100 MG TAB PER TUBE SCH (06:10)
[2019-04-18] MEDS: Aspirin Chewable 81 MG TAB PER TUBE SCH (09:09)
[2019-04-18] MEDS: Famotidine 20 MG TAB PER TUBE SCH ×2 (09:09→21:11)
[2019-04-18] MEDS: Baclofen 10 MG TAB PER TUBE SCH ×2 (09:09→21:12)
[2019-04-18] MEDS: Ascorbic Acid 500 mg Chewable Tablet PER TUBE SCH (09:09)
[2019-04-18] MEDS: Docusate Sodium 100 MG/10 ML UDCUP PER TUBE SCH ×3 (09:09→21:11)
[2019-04-18] MEDS: D MANNOSE PER TUBE SCH (09:10)
[2019-04-18] MEDS: Pantoprazole 40 MG GRANULES PACKET PER TUBE SCH (09:10)
[2019-04-18] MEDS: Polyethylene Glycol 3350 17 GM Packet PER TUBE SCH (09:10)
[2019-04-18] MEDS: Multivitamins CHEW w/Iron Tablet PER TUBE SCH (09:10)
[2019-04-18] MEDS: Venlafaxine HCl 25 MG TAB PER TUBE SCH (09:11)
[2019-04-18] MEDS: Tamsulosin HCl 0.4 MG CAP PO SCH (09:11)
--- NOTE | 2019-04-18 16:05 | PRG ---
DATE OF SERVICE: 04/18/2019 SUBJECTIVE: Mr. Zurita is in his chair, dozing. His spouse is in the room. They are happy with his progress. No questions or concerns. OBJECTIVE: VITAL SIGNS: He is afebrile. Heart rate 95, respirations 20, oxygen saturation 97% on room air, blood pressure 144/70. CARDIOVASCULAR SYSTEM: S1 and S2 plus. RESPIRATORY SYSTEM: Normal vesicular breath sounds. ABDOMEN: Soft and nontender. Bowel sounds heard in all quadrants. PEG tube site is healthy. EXTREMITIES: Without cyanosis or clubbing. CENTRAL NERVOUS SYSTEM: Residual deficit from his hydrocephalus and recent CVA. IMPRESSION: 1. Resolving Pseudomonas urinary tract infection. 2. Hydrocephalus and recent cerebrovascular accident. 3. Hypertension. 4. Dyslipidemia. 5. Muscle spasticity. 6. Benign prostatic hypertrophy. PLAN: 1. Continue current medications. 2. Nutritional support with tube feeds and aspiration precaution. 3. Monitor blood pressure and adjust medications as needed. 4. DVT and stress ulcer prophylaxis. 5. Physical therapy. 6. Routine laboratory values. 7. Dr. Carreon back [facility]. Job ID: [id number]
[2019-04-18] MEDS: Atorvastatin Calcium 20 MG TAB PER TUBE SCH (21:11)
[2019-04-18] MEDS: Enoxaparin Sodium 40 MG/0.4 ML SYRINGE SC SCH (21:12)
[2019-04-18] MEDS: MELATONIN 10 MG PER TUBE SCH (21:16)
[2019-04-19] MEDS: Modafinil 100 MG TAB PER TUBE SCH (06:20)
[2019-04-19] MEDS: Polyethylene Glycol 3350 17 GM Packet PER TUBE SCH (08:09)
[2019-04-19] MEDS: Docusate Sodium 100 MG/10 ML UDCUP PER TUBE SCH ×3 (08:09→20:44)
[2019-04-19] MEDS: Pantoprazole 40 MG GRANULES PACKET PER TUBE SCH (08:09)
[2019-04-19] MEDS: Aspirin Chewable 81 MG TAB PER TUBE SCH (08:10)
[2019-04-19] MEDS: Venlafaxine HCl 25 MG TAB PER TUBE SCH (08:10)
[2019-04-19] MEDS: Baclofen 10 MG TAB PER TUBE SCH ×2 (08:10→20:44)
[2019-04-19] MEDS: Ascorbic Acid 500 mg Chewable Tablet PER TUBE SCH (08:10)
[2019-04-19] MEDS: Tamsulosin HCl 0.4 MG CAP PO SCH (08:10)
[2019-04-19] MEDS: Famotidine 20 MG TAB PER TUBE SCH ×2 (08:10→20:44)
[2019-04-19] MEDS: Multivitamins CHEW w/Iron Tablet PER TUBE SCH (08:10)
[2019-04-19] MEDS: D MANNOSE PER TUBE SCH (08:11)
--- NOTE | 2019-04-19 19:38 | PRG ---
DATE OF SERVICE: 04/19/2019 SUBJECTIVE: Mr. Zurita is a well-developed, well-nourished, 63-year-old white male. He had a large glioblastoma surgically removed on 05/26/[address] Chavez. Postoperatively, he did very well. Discharged home. Unfortunately, about a week later, the patient presented back to the emergency room with meningitis with Serratia. He was treated with antibiotics and eventually transferred to [facility]. At [facility], he was transferred back and forth from [facility] for multiple urinary tract infections, CVAs, etc. Most recently, he had sepsis with urinary tract infection, was transferred to [facility] in [place]. Eventually, he was stabilized, now transferred to [facility] for PT, OT, and speech therapy. Today, the patient states he had a good weekend. He is answering my questions and peering at me. He had apparently a very good weekend. He has no concerns or complaints today. His is not at his bedside. OBJECTIVE: VITAL SIGNS: Today reveal blood pressure 140/72, pulse 79 to 107, respirations 18, O2 saturation 97% on room air, T-max 98.1. GENERAL: This is a well-developed, well-nourished, pleasant 63-year-old white male, in no apparent distress at this time. HEENT: Reveals normocephalic and nontraumatic cranium. Pupils are equal, round, and reactive. Extraocular movements are intact. Nose and throat are slightly dry. NECK: Supple without masses, nodes, or bruits. CHEST: Clear to auscultation. No rales. No rhonchi. No wheezes are heard, although breath sounds are shallow. HEART: Reveals a regular rate and rhythm without murmurs, gallops, or rubs. ABDOMEN: Soft, nontender without organomegaly. New PEG tube continues to do well. : Deferred. Blum catheter is in place. Blum catheter was replaced over the weekend. EXTREMITIES: Reveal no clubbing, cyanosis, or edema. Still increased tone. The patient continues to be on baclofen b.i.d. ASSESSMENT: 1. Hypertension. 2. Hyperlipidemia. 3. Hyperglycemia. 4. Dysphagia. 5. Metabolic encephalopathy. Continues to improve. 6. Percutaneous endoscopic gastrostomy tube. 7. Right-sided weakness. 8. Somnolence much improved. 9. Inferior vena cava filter. 10. Generalized weakness. 11. Hydrocephalus with shunt. 12. Surgical incision of malignant glioblastoma on 05/26/2018. PLAN: 1. Continue to monitor the patient closely for any sepsis. 2. Continue to keep Dr. Shaw in the loop with his progress. 3. Continue to keep the patient out of bed as much as possible. 4. Monitor the patient's blood pressure closely. 5. Continue tube feedings. Eventually wean to bolus feedings. 6. Continue present medications. 7. Appreciate Dr. Shaw' assistance in this complicated patient. 8. Continue PT and OT. 9. Continue speech therapy. Job ID: [id number]
[2019-04-19] MEDS: Atorvastatin Calcium 20 MG TAB PER TUBE SCH (20:44)
[2019-04-19] MEDS: Enoxaparin Sodium 40 MG/0.4 ML SYRINGE SC SCH (20:44)
[2019-04-20] MEDS: Modafinil 100 MG TAB PER TUBE SCH (06:18)
[2019-04-20] MEDS: Venlafaxine HCl 25 MG TAB PER TUBE SCH (09:41)
[2019-04-20] MEDS: Pantoprazole 40 MG GRANULES PACKET PER TUBE SCH (09:41)
[2019-04-20] MEDS: Ascorbic Acid 500 mg Chewable Tablet PER TUBE SCH (09:41)
[2019-04-20] MEDS: Polyethylene Glycol 3350 17 GM Packet PER TUBE SCH (09:41)
[2019-04-20] MEDS: Docusate Sodium 100 MG/10 ML UDCUP PER TUBE SCH ×3 (09:41→20:49)
[2019-04-20] MEDS: Baclofen 10 MG TAB PER TUBE SCH ×2 (09:42→20:48)
[2019-04-20] MEDS: Famotidine 20 MG TAB PER TUBE SCH ×2 (09:42→20:49)
[2019-04-20] MEDS: Multivitamins CHEW w/Iron Tablet PER TUBE SCH (09:42)
[2019-04-20] MEDS: Aspirin Chewable 81 MG TAB PER TUBE SCH (09:42)
[2019-04-20] MEDS: Tamsulosin HCl 0.4 MG CAP PO SCH (09:42)
--- NOTE | 2019-04-20 10:43 | PRG ---
DATE OF SERVICE: 04/20/2019 SUBJECTIVE: Mr. Zurita is a 63-year-old very pleasant white male, who had a large glioblastoma surgically removed by Dr. Chavez on 05/26/2019. Discharge home did very well, but unfortunately, returned to the emergency room with a Serratia meningitis. Treated with IV antibiotics and eventually transferred to LT in the [place] area. Unfortunately, he became sick and he was transferred back and forth from acute care to LT for several months, and finally, was transferred to [facility] in [place] with urinary tract infection. He was septic. He was treated, but he also had a stroke. He then was transferred to [facility], close to home for physical therapy, occupational therapy, and speech therapy. I did talk with therapy today and they say that he is slowly getting better not rapidly but slowly improving. Today, he did utility bill complaints investigator a standing frame for about 5 minutes. He continues to have contractions. We are looking for some type of brace or wheelchair extension to extend his leg, so that they do not contract as much. He is on the baclofen half pill b.i.d. He continues with physical therapy, occupational therapy, and speech therapy. This morning, his xjnhmjff-sg-xoc, Abbey, is here and keeping him awake and alert. OBJECTIVE: VITAL SIGNS: This morning, blood pressure somewhat elevated at 182/90, but that was during therapy. When they were stretching him, he was hurting. Pulse 92 to 104, respirations 20, O2 saturation 99% on room air, and T-max 96.8. GENERAL: This is a well-developed, well-nourished, pleasant 63-year-old white male without any complaints today. He states he wants to watch his versions today. HEENT: Normocephalic and nontraumatic cranium. Pupils are equally round and reactive. Extraocular movements are intact. Nose and throat are slightly dry, but clear. NECK: Supple without masses, nodes, or bruits. CHEST: Clear to auscultation. No rales, rhonchi, or wheezes are heard. Breath sounds are shallow. HEART: Regular rate and rhythm without murmurs, gallops, or rubs. ABDOMEN: Soft, nontender without organomegaly. PEG tube is still doing well. : Deferred. Blum catheter is in place. Clear urine noted. EXTREMITIES: No clubbing, cyanosis, or edema is noted in his extremities. The patient continues to have extreme tone, but he was just stretched out. He is better. He continues to get baclofen half pill b.i.d. ASSESSMENT: 1. Hypertension, which is little elevated this morning. 2. Hyperlipidemia. 3. Hyperglycemia. 4. Dysphagia. 5. Metabolic encephalopathy. 6. Percutaneous endoscopic gastrostomy tube .. 7. Right-sided weakness. 8. Somnolence, improved. 9. Inferior vena cava filter. 10. Generalized weakness. 11. Hydrocephalus with shunt. 12. Surgical excision of malignant glioblastoma on 05/26/2018. PLAN: 1. Continue to monitor the patient's blood pressure closely. 2. Continue tube feedings and weaned to bolus as able. 3. Continue present medications. 4. We will restart D-mannose twice a day. 5. Appreciate Dr. Shaw' assistance in this complicated patient. He is following him from afar. 6. Continue to monitor the patient closely for sepsis. 7. Labs tomorrow morning. 8. Continue PT and OT. 9. Continue speech. Job ID: [id number]
[2019-04-20] MEDS: Acetaminophen 500 MG TAB PO PRN ×2 (16:03→20:49)
[2019-04-20] MEDS: Atorvastatin Calcium 20 MG TAB PER TUBE SCH (20:48)
[2019-04-20] MEDS: Enoxaparin Sodium 40 MG/0.4 ML SYRINGE SC SCH (20:50)
[2019-04-21 05:56] LABS: ALT (SGPT) 32 U/L (8-55); AST (SGOT) 19 U/L (5-34); Albumin 3.2 g/dL (3.4-4.8); Alkaline Phosphatase 111 U/L (40-110); Anion Gap 13 mmol/L (10-20); BUN (Urea Nitrogen) 21 mg/dL (8.4-25.7); Bilirubin, Total 0.2 mg/dL (0.2-1.2); Calc. Creatinine Clearance 102 mL/min (70-130); Calcium 9.7 mg/dL (7.8-10.44); Carbon Dioxide 31 mmol/L (23-31); Chloride 101 mmol/L (98-107); Eosinophils 5 % (0-10); Estimated GFR-MDRD Greater than 90; Globulin 3.1 g/dL (2.4-3.5); Glucose 134 mg/dL (80-115); Lymphocytes 27 % (21-51); MDiff Complete? YES; Mean Corpuscular HGB CONC 32.3 g/dL (32.0-36.0); Mean Corpuscular Hemoglobin 29.1 pg (27.0-31.0); Mean Corpuscular Volume 90.1 fL (78.0-98.0); Mean Platelet Volume 8.7 fL (7.4-10.4); Microcytosis MODERATE=15-30 cells (100X) (0-5/hpf); Monocytes 12 % (0-10); Neutrophil 56 % (42-75); Platelet Count 223 thou/uL (130-400); Platelet Morphology Comment Appears Adequate; Potassium 3.9 mmol/L (3.5-5.1); Protein, Total 6.3 g/dL (5.8-8.1); RBC Distribution Width 14.4 % (11.5-14.5); Red Blood Cell (RBC) Count 3.42 mill/uL (4.70-6.10); Sodium 141 mmol/L (136-145); White Blood Cell (WBC) Count 6.1 thou/uL (4.8-10.8)
[2019-04-21] MEDS: Modafinil 100 MG TAB PER TUBE SCH (06:22)
[2019-04-21] MEDS: Ascorbic Acid 500 mg Chewable Tablet PER TUBE SCH (08:40)
[2019-04-21] MEDS: Baclofen 10 MG TAB PER TUBE SCH ×2 (08:40→20:24)
[2019-04-21] MEDS: Aspirin Chewable 81 MG TAB PER TUBE SCH (08:40)
[2019-04-21] MEDS: Famotidine 20 MG TAB PER TUBE SCH ×2 (08:41→20:25)
[2019-04-21] MEDS: Pantoprazole 40 MG GRANULES PACKET PER TUBE SCH (08:41)
[2019-04-21] MEDS: Multivitamins CHEW w/Iron Tablet PER TUBE SCH (08:41)
[2019-04-21] MEDS: Docusate Sodium 100 MG/10 ML UDCUP PER TUBE SCH ×3 (08:41→20:25)
[2019-04-21] MEDS: Tamsulosin HCl 0.4 MG CAP PO SCH (08:42)
[2019-04-21] MEDS: Polyethylene Glycol 3350 17 GM Packet PER TUBE SCH (08:42)
[2019-04-21] MEDS: D MANNOSE PER TUBE SCH (08:42)
[2019-04-21] MEDS: Venlafaxine HCl 25 MG TAB PER TUBE SCH (08:42)
--- NOTE | 2019-04-21 12:08 | PRG ---
DATE OF SERVICE: 04/21/2019 SUBJECTIVE: Mr. Zurita is a very pleasant 63-year-old white male. He was found to have a glioblastoma, which was surgically removed by Dr. Chavez on He did very well postoperatively, was discharged home, but returned with Serratia meningitis. Treated with IV antibiotics, improved, was transferred to [facility] in the [facility]. Unfortunately, he waxed and waned. Did better. Did worse. Transferred back and forth from acute care to [facility] for several months. He was transferred to [facility] about a month ago with urinary tract infection and sepsis. After that and after he was stabilized, he was transferred to [facility] for physical therapy and occupational therapy and speech therapy. Unfortunately, while at the [facility], he had another stroke. Today, the patient is awake and alert and sat, already had his speech therapy. He is getting ready to do physical therapy on him this morning, but he is somewhat tired. He continues to have contractions and increased muscle tone mainly in his lower extremities. OBJECTIVE: VITAL SIGNS: Today blood pressure this morning 164/89, pulse 101, respirations 18, O2 saturation 95% to 96% on room air, and T-max 98.4. GENERAL: This is a well-developed, well-nourished, pleasant white male, who nods yes and no and answers one-word answers this morning. Yesterday, he was speaking sentences. He states he is tired from his therapy this morning. HEENT: Normocephalic and nontraumatic cranium. Extraocular movements are intact. Nose and throat are slightly dry, but clear. Craniotomy scar well healed. NECK: Supple without masses, nodes, or bruits. CHEST: Clear to auscultation. No rales, rhonchi, wheezes, or cough is heard. HEART: Regular rate and rhythm without murmurs, gallops, or rubs. ABDOMEN: Soft, nontender with PEG tube, doing well. He still has a PEG tube feedings. : Blum catheter in place. Clear urine noted. EXTREMITIES: No clubbing, cyanosis, or edema. The patient has increased tone in lower extremities. He is on baclofen half pill b.i.d. for that problem. LABORATORY DATA: Today reveals white count 6100 with a hemoglobin 10.0, hematocrit 30.8, and platelet count of 23. He has no shift. Sodium is 141, potassium 3.9, chloride 101, carbon dioxide 31 with a BUN of 21, creatinine 0.74, and GFR greater than 90. Sugar this morning was 134. ASSESSMENT: 1. Hypertension, still little elevated this morning. 2. Hyperlipidemia. 3. Hyperglycemia. 4. Dysphagia. 5. Metabolic encephalopathy. 6. PEG tube placement. 7. Right-sided weakness. 8. Somnolence, improved. 9. Inferior vena cava filter. 10. Generalized weakness. 11. Hydrocephalus with shunt. 12. Surgical excision of malignant glioblastoma on 05/26/2018. PLAN: 1. Continue to monitor the patient's blood work probably every 4 to 5 days and/or p.r.n. 2. Continue to monitor the patient's blood pressure closely and we may adjust his medicines today. 3. Continue tube feedings and wean to bolus feedings as able. 4. Continue present medications. 5. Restart D-mannose b.i.d. 6. Continue to monitor the patient closely for sepsis. 7. Labs done this morning are excellent, repeat them in 5 to 6 days. 8. Continue physical therapy and occupational therapy. 9. Continue speech therapy. Job ID: [id number]
[2019-04-21] MEDS: Atorvastatin Calcium 20 MG TAB PER TUBE SCH (20:24)
[2019-04-21] MEDS: Enoxaparin Sodium 40 MG/0.4 ML SYRINGE SC SCH (20:25)
[2019-04-21] MEDS: Metoprolol Tartrate 25 MG TAB PO SCH (20:25)
[2019-04-21] MEDS: Acetaminophen 500 MG TAB PO PRN (20:26)
[2019-04-22] MEDS: Modafinil 100 MG TAB PER TUBE SCH (06:27)
[2019-04-22] MEDS: Metoprolol Tartrate 25 MG TAB PO SCH ×2 (08:36→20:27)
[2019-04-22] MEDS: Tamsulosin HCl 0.4 MG CAP PO SCH (08:36)
[2019-04-22] MEDS: Ascorbic Acid 500 mg Chewable Tablet PER TUBE SCH (08:36)
[2019-04-22] MEDS: Famotidine 20 MG TAB PER TUBE SCH ×2 (08:36→20:27)
[2019-04-22] MEDS: Polyethylene Glycol 3350 17 GM Packet PER TUBE SCH (08:36)
[2019-04-22] MEDS: Venlafaxine HCl 25 MG TAB PER TUBE SCH (08:36)
[2019-04-22] MEDS: Pantoprazole 40 MG GRANULES PACKET PER TUBE SCH (08:36)
[2019-04-22] MEDS: Docusate Sodium 100 MG/10 ML UDCUP PER TUBE SCH ×4 (08:36→20:43)
[2019-04-22] MEDS: D MANNOSE PER TUBE SCH (08:37)
[2019-04-22] MEDS: Baclofen 10 MG TAB PER TUBE SCH ×3 (08:37→20:28)
[2019-04-22] MEDS: Aspirin Chewable 81 MG TAB PER TUBE SCH (08:37)
[2019-04-22] MEDS: Multivitamins CHEW w/Iron Tablet PER TUBE SCH (08:37)
--- NOTE | 2019-04-22 14:55 | PRG ---
DATE OF SERVICE: 04/22/2019 SUBJECTIVE: Mr. Zurita is a very pleasant 63-year-old white male, who had a glioblastoma removed by Dr. Chavez on 05/26/2018. Postoperatively, he did well, was soon discharged to home. The patient returned to the hospital emergency room approximately one week later and was found to have a meningitis with Serratia. He was treated appropriately with IV antibiotics and transferred to [facility] for continued long-term acute care and therapy. Unfortunately, he got into septic and noted to have urinary tract infections, which began around the following with urinary tract infections or pneumonia. He eventually was stabilized at [facility], now was transferred to [facility], where he will continue with physical therapy and occupational therapy. Today, the patient's is in room and [id number]. I feel like the baclofen may be making him a little bit too sleepy, so we will cut his baclofen for morning dose until 2 o'clock as an evening dose and then another dose later on the evening, so he can get some rest. OBJECTIVE: VITAL SIGNS: Reveal blood pressure is still a little elevated 170/73, last night was 136/80; pulse 97 to 105; respirations 18 to 20; O2 saturation 94% to 97% on room air; and T-max 97.8. GENERAL: This is a well-developed, well-nourished, very pleasant white male, in no apparent distress at this time. HEENT: Normocephalic and nontraumatic cranium. Pupils are equal, round, and reactive. Extraocular movements are intact. Nose and throat are slightly dry. NECK: Supple without masses, nodes, or bruits. CHEST: Clear to auscultation. No rales, rhonchi, or wheezes are heard. HEART: Reveals a regular rate and rhythm without murmurs, gallops, or rubs. ABDOMEN: Soft and nontender without organomegaly. Normal bowel sounds are noted. No rebound or guarding is noted. GENITOURINARY: Deferred. EXTREMITIES: Reveal no clubbing, cyanosis, or edema. ASSESSMENT: 1. Hypertension. 2. Dysphagia. 3. Right-sided weakness. 4. Somnolence. 5. Hyperlipidemia. 6. Hyperglycemia. 7. Metabolic encephalopathy. 8. PEG tube placement. 9. Hydrocephalus with shunt. 10. Surgical excision of malignant glioblastoma on 05/26/2018. PLAN: 1. Continue to monitor the patient's blood pressure closely and adjust medications as needed. 2. Continue to monitor the patient's sugar with Accu-Cheks before meals and at bedtime. 3. Continue tube feedings and wean to bolus feedings as able. 4. Continue present medications. 5. Continue D-mannose b.i.d. 6. Continue to monitor the patient's blood sugar closely for . 7. Labs q.5 days. 8. Continue physical therapy and occupational therapy. 9. Continue speech therapy. Job ID: [id number]
[2019-04-22] MEDS: Enoxaparin Sodium 40 MG/0.4 ML SYRINGE SC SCH (20:26)
[2019-04-22] MEDS: Atorvastatin Calcium 20 MG TAB PER TUBE SCH (20:27)
[2019-04-23] MEDS: Modafinil 100 MG TAB PER TUBE SCH (05:20)
[2019-04-23] MEDS: Docusate Sodium 100 MG/10 ML UDCUP PER TUBE SCH ×3 (09:07→20:51)
[2019-04-23] MEDS: Metoprolol Tartrate 25 MG TAB PO SCH (09:07)
[2019-04-23] MEDS: Acetaminophen 500 MG TAB PO PRN (09:07)
[2019-04-23] MEDS: Venlafaxine HCl 25 MG TAB PER TUBE SCH (09:07)
[2019-04-23] MEDS: Ascorbic Acid 500 mg Chewable Tablet PER TUBE SCH (09:07)
[2019-04-23] MEDS: Polyethylene Glycol 3350 17 GM Packet PER TUBE SCH (09:07)
[2019-04-23] MEDS: Pantoprazole 40 MG GRANULES PACKET PER TUBE SCH (09:07)
[2019-04-23] MEDS: Famotidine 20 MG TAB PER TUBE SCH ×2 (09:07→20:52)
[2019-04-23] MEDS: Aspirin Chewable 81 MG TAB PER TUBE SCH (09:07)
[2019-04-23] MEDS: Multivitamins CHEW w/Iron Tablet PER TUBE SCH (09:07)
[2019-04-23] MEDS: Tamsulosin HCl 0.4 MG CAP PO SCH (09:08)
[2019-04-23] MEDS: D MANNOSE PER TUBE SCH (09:08)
[2019-04-23] MEDS: Baclofen 10 MG TAB PER TUBE SCH ×2 (14:40→20:52)
--- NOTE | 2019-04-23 17:26 | PRG ---
DATE OF SERVICE: 04/23/[address] Dez Carreon. SUBJECTIVE: The patient is an unfortunate 63-year-old white male, who has undergone removal of a glioblastoma on May 26, 2018. He has had postoperative complication of Serratia meningitis requiring long-term acute care hospital and then subsequently urinary tract infection with sepsis requiring admission to acute care hospital and then transferred to [place]. He is continued on PT/OT. Apparently, 2 days ago, he was speaking in sentences, but then yesterday, he was very sleepy and only speaking in one word today. He awakens to verbal questions, but does not respond verbally, but only by nodding his head. OBJECTIVE: VITAL SIGNS: Show his blood pressure to be 147/99, pulse 112, temperature 97, respirations 18, O2 saturations 95% on room air. LUNGS: Clear at this time. CARDIAC: Shows regular rhythm. ABDOMEN: Soft and nontender. PEG tube is in place. SKIN/EXTREMITIES: Showed no edema, clubbing, or cyanosis. NEUROLOGIC: The patient moves extremities to command and to pain with some right-sided weakness. LABORATORY DATA: 2 days ago, within normal limits except for low albumin of 3.2 and mild anemia, hemoglobin of 10. ASSESSMENT: 1. Hypertension, uncontrolled, on metoprolol 25 twice daily with elevated pulse, so we will increase metoprolol to 50 twice daily. 2. Increased lethargy, felt possibly due to baclofen per Dr. Carreon. We will only give it night, but also, the patient is on modafinil, and we will continue this. 3. Right-sided weakness, appears to be stable. 4. Hyperglycemia, normalized. 5. History of sepsis secondary to urinary tract infection with no recurrence. PLAN: 1. Continue to monitor blood pressure closely and increase metoprolol to 50 twice daily. 2. Continue Accu-Cheks before meals and at bedtime and monitor and control sugar with sliding scale. 3. Continue tube feedings. 4. Continue D-mannose for urinary tract prophylaxis. 5. Continue PT, OT, and speech therapy. Job ID: [id number]
[2019-04-23] MEDS: Enoxaparin Sodium 40 MG/0.4 ML SYRINGE SC SCH (20:51)
[2019-04-23] MEDS: Atorvastatin Calcium 20 MG TAB PER TUBE SCH (20:52)
[2019-04-23] MEDS: Metoprolol Tartrate 50 MG TAB PO SCH (20:52)
[2019-04-24] MEDS: Modafinil 100 MG TAB PER TUBE SCH (05:37)
[2019-04-24] MEDS: Tamsulosin HCl 0.4 MG CAP PO SCH (09:31)
[2019-04-24] MEDS: Venlafaxine HCl 25 MG TAB PER TUBE SCH (09:31)
[2019-04-24] MEDS: Famotidine 20 MG TAB PER TUBE SCH ×2 (09:31→20:11)
[2019-04-24] MEDS: Multivitamins CHEW w/Iron Tablet PER TUBE SCH (09:31)
[2019-04-24] MEDS: Aspirin Chewable 81 MG TAB PER TUBE SCH (09:31)
[2019-04-24] MEDS: Polyethylene Glycol 3350 17 GM Packet PER TUBE SCH (09:31)
[2019-04-24] MEDS: Ascorbic Acid 500 mg Chewable Tablet PER TUBE SCH (09:31)
[2019-04-24] MEDS: Metoprolol Tartrate 50 MG TAB PO SCH ×2 (09:31→20:11)
[2019-04-24] MEDS: Pantoprazole 40 MG GRANULES PACKET PER TUBE SCH (09:31)
[2019-04-24] MEDS: Docusate Sodium 100 MG/10 ML UDCUP PER TUBE SCH ×3 (09:32→20:10)
[2019-04-24] MEDS: D MANNOSE PER TUBE SCH (09:32)
[2019-04-24] MEDS: Baclofen 10 MG TAB PER TUBE SCH ×2 (14:58→20:10)
[2019-04-24] MEDS: Enoxaparin Sodium 40 MG/0.4 ML SYRINGE SC SCH (20:10)
[2019-04-24] MEDS: Atorvastatin Calcium 20 MG TAB PER TUBE SCH (20:11)
[2019-04-25] MEDS: Modafinil 100 MG TAB PER TUBE SCH (06:00)
[2019-04-25] MEDS: Acetaminophen 500 MG TAB PO PRN ×2 (09:49→16:59)
[2019-04-25] MEDS: Venlafaxine HCl 25 MG TAB PER TUBE SCH (09:49)
[2019-04-25] MEDS: Multivitamins CHEW w/Iron Tablet PER TUBE SCH (09:49)
[2019-04-25] MEDS: Aspirin Chewable 81 MG TAB PER TUBE SCH (09:50)
[2019-04-25] MEDS: Ascorbic Acid 500 mg Chewable Tablet PER TUBE SCH (09:50)
[2019-04-25] MEDS: Famotidine 20 MG TAB PER TUBE SCH ×2 (09:50→20:22)
[2019-04-25] MEDS: Metoprolol Tartrate 50 MG TAB PO SCH ×2 (09:50→20:23)
[2019-04-25] MEDS: D MANNOSE PER TUBE SCH (09:51)
[2019-04-25] MEDS: Pantoprazole 40 MG GRANULES PACKET PER TUBE SCH (09:51)
[2019-04-25] MEDS: Polyethylene Glycol 3350 17 GM Packet PER TUBE SCH (09:51)
[2019-04-25] MEDS: Docusate Sodium 100 MG/10 ML UDCUP PER TUBE SCH ×3 (09:51→20:21)
[2019-04-25] MEDS: Tamsulosin HCl 0.4 MG CAP PO SCH (09:51)
[2019-04-25] MEDS: Baclofen 10 MG TAB PER TUBE SCH ×2 (15:16→20:22)
[2019-04-25] MEDS: Enoxaparin Sodium 40 MG/0.4 ML SYRINGE SC SCH (20:21)
[2019-04-25] MEDS: Atorvastatin Calcium 20 MG TAB PER TUBE SCH (20:22)
--- NOTE | 2019-04-25 21:13 | PRG ---
DATE OF SERVICE: 04/24/2019 SUBJECTIVE: The patient is lying in bed, sleeping, difficult to awake, but arouses, but is nonverbal. OBJECTIVE: VITAL SIGNS: Show temperature 97.1, pulse 93, respirations 20, O2 saturations 95% on room air, blood pressure 133/69. LUNGS: Clear. CARDIAC: Showed regular rhythm. ABDOMEN: Soft and nontender. NEUROLOGIC: Shows dense right-sided weakness. ASSESSMENT: 1. Hypertension controlled to goal, on metoprolol 50 twice daily. 2. Persistent lethargy despite decreasing baclofen to only at night and may discontinue. 3. Right-sided weakness, stable. 4. Sepsis, resolved. No evidence of recurrence. PLAN: 1. We will discontinue baclofen tomorrow if no change. 2. Continue metoprolol 50 twice daily. 3. Continue Accu-Cheks to monitor and titrate and control diabetes. 4. May repeat urinalysis of persistent lethargy. Job ID: [id number]
--- NOTE | 2019-04-25 21:36 | PRG ---
DATE OF SERVICE: 04/25/2019 SUBJECTIVE: The patient is sleeping heavily, awakens very slowly. Has been taking tube feedings and has been on demand dose for urinary tract infection, but appears to be more lethargic. He is having no respiratory distress. OBJECTIVE: VITAL SIGNS: Show temperature 96.8, pulse 82, respirations 20, O2 saturations 96% on room air, and blood pressure 156/76. LUNGS: Clear. CARDIAC: Examination showed regular rhythm. ABDOMEN: Soft and nontender. ASSESSMENT: 1. Hypertension, controlled to goal. Increase metoprolol. 2. Persistent right-sided weakness, status post removal of glioblastoma with hydrocephalus with shunt. 3. Persistent somnolence, possibly worsen. PLAN: 1. Discontinue baclofen. 2. Repeat urine culture, CBC, and basic metabolic in the a.m. 3. Dr. Lauri saldaña [facility]. Job ID: [id number]
[2019-04-26 05:37] LABS: #Eosinphils 0.2 thou/uL (0.0-0.7); #Lymphocytes 1.8 thou/uL (1.20-3.40); #Monocytes 0.5 thou/uL (0.11-0.59); #Neutrophils 5.6 thou/uL (1.40-6.50); %Basophils 0.6 % (0.0-1.0); %Lymphocytes 21.7 % (21.0-51.0); %Monocytes 6.5 % (0.0-10.0); %Neutrophils 68.3 % (42.0-75.0); Hemoglobin 10.5 g/dL (14.0-18.0); Mean Corpuscular HGB CONC 32.2 g/dL (32.0-36.0); Mean Corpuscular Hemoglobin 29.2 pg (27.0-31.0); Mean Corpuscular Volume 90.7 fL (78.0-98.0); Platelet Count 207 thou/uL (130-400); RBC Distribution Width 14.7 % (11.5-14.5); White Blood Cell (WBC) Count 8.2 thou/uL (4.8-10.8)
[2019-04-26] MEDS: Modafinil 100 MG TAB PER TUBE SCH (05:44)
[2019-04-26 05:52] LABS: ALT (SGPT) 44 U/L (8-55); AST (SGOT) 28 U/L (5-34); Albumin 3.4 g/dL (3.4-4.8); Alkaline Phosphatase 124 U/L (40-110); Anion Gap 14 mmol/L (10-20); BUN (Urea Nitrogen) 22 mg/dL (8.4-25.7); Bilirubin, Total 0.2 mg/dL (0.2-1.2); Calc. Creatinine Clearance 109 mL/min (70-130); Carbon Dioxide 28 mmol/L (23-31); Chloride 100 mmol/L (98-107); Estimated GFR-MDRD Greater than 90; Globulin 3.4 g/dL (2.4-3.5); Glucose 121 mg/dL (80-115); Protein, Total 6.8 g/dL (5.8-8.1); Sodium 138 mmol/L (136-145)
[2019-04-26] MEDS: Docusate Sodium 100 MG/10 ML UDCUP PER TUBE SCH ×3 (09:25→20:15)
[2019-04-26] MEDS: D MANNOSE PER TUBE SCH (09:25)
[2019-04-26] MEDS: Polyethylene Glycol 3350 17 GM Packet PER TUBE SCH (09:25)
[2019-04-26] MEDS: Pantoprazole 40 MG GRANULES PACKET PER TUBE SCH (09:26)
[2019-04-26] MEDS: Ascorbic Acid 500 mg Chewable Tablet PER TUBE SCH (09:26)
[2019-04-26] MEDS: Tamsulosin HCl 0.4 MG CAP PO SCH (09:26)
[2019-04-26] MEDS: Famotidine 20 MG TAB PER TUBE SCH ×2 (09:26→20:14)
[2019-04-26] MEDS: Metoprolol Tartrate 50 MG TAB PO SCH ×2 (09:26→20:14)
[2019-04-26] MEDS: Venlafaxine HCl 25 MG TAB PER TUBE SCH (09:26)
[2019-04-26] MEDS: Aspirin Chewable 81 MG TAB PER TUBE SCH (09:26)
[2019-04-26] MEDS: Multivitamins CHEW w/Iron Tablet PER TUBE SCH (09:27)
--- NOTE | 2019-04-26 18:53 | PRG ---
DATE OF SERVICE: 04/26/2019 SUBJECTIVE: Mr. Zurita is a pleasant 63-year-old white male, who had a glioblastoma removed by Dr. Chavez on 05/26/2018. Postoperatively, he did well and discharged home. Unfortunately, returned to the hospital approximately a week later with Serratia meningitis. Treated appropriately with IV antibiotics, but was very weak and transferred to LT for continued long-term care and therapy. Unfortunately, he was shuffled in and out between acute care hospital to LT secondary to sepsis for urinary tract infections, pneumonia, and CVAs. Most recently, he was stabilized at [facility] with urinary tract sepsis and CVA. He was transferred to [facility] for Physical Therapy/Occupational Therapy to increase his strength and stamina. Over the last 3 days, the patient had been followed by Dr. Stevens, who felt that the patient was increasingly lethargic and sleepy and so he cut his baclofen. He states he was not very responsive over the weekend and actually was little sleepy this morning. The patient's was upset this morning when she came to talk to me, because she states over the weekend the patient was not out of bed over the weekend. She expects to him to be in a wheelchair and place there with a Huyen lift. OBJECTIVE: VITAL SIGNS: Today reveal blood pressure 142/70, pulse 72 to 89, respirations 18, O2 saturation 94% on room air. T-max 98.3. GENERAL: This is a well-developed, well-nourished, 63-year-old white male, in no apparent distress at this time. HEENT: Normocephalic and nontraumatic cranium. Pupils are equal, round, and reactive. Extraocular movements are intact. The patient does track. Nose and throat are clear, but slightly dry. NECK: Supple without masses, nodes, or bruits. CHEST: Clear to auscultation. No rales, no rhonchi, no wheezes are heard. No cough is noted today. HEART: Reveals a regular rate and rhythm without murmurs, gallops, or rubs. ABDOMEN: Soft, nontender without organomegaly. Normal bowel sounds are noted. No rebound or guarding is noted. : Deferred. Blum intact and clear. EXTREMITIES: Reveal no clubbing, cyanosis, or edema, but the patient continues to have right-sided weakness status post glioblastoma surgery. ASSESSMENT: 1. Status post removal of glioblastoma, 05/26/2018. 2. Hypertension. 3. Dysphagia. 4. Right-sided weakness. 5. Somnolence. 6. Hyperlipidemia. 7. Hyperglycemia. 8. Metabolic encephalopathy. 9. PEG tube. 10. Hydrocephalus status post shunt. PLAN: 1. Continue to monitor the patient's blood pressure closely. 2. Monitor the patient since he is off his baclofen. 3. Continue to monitor the patient's sugars with Accu-Cheks a.c. and at bedtime. 4. Continue bolus feedings. 5. Continue aggressive physical therapy and occupational therapy. 6. Make sure the patient is out of bed daily even if Huyen lift may need to be used. 7. Continue D-mannose b.i.d. per 's request. 8. Continue to monitor the patient's blood sugar closely. 9. Continue physical therapy and occupational therapy. 10. Continue speech therapy. 11. Labs today reveal white count 8200 with a hemoglobin 10.5, hematocrit 32.6, platelet count 207,000, . 12. Sodium 138, potassium 4.0, chloride 100, carbon dioxide 28 with a BUN of 22, creatinine 0.72 and a GFR greater than 90. 13. The patient's alkaline phosphatase is slightly high at 124. The patient's albumin globulin back to normal. Urinalysis checked several days ago was unremarkable. 14. Continue tube feedings. 15. Continue present medications. Job ID: [id number]
[2019-04-26] MEDS: Enoxaparin Sodium 40 MG/0.4 ML SYRINGE SC SCH (20:13)
[2019-04-26] MEDS: Atorvastatin Calcium 20 MG TAB PER TUBE SCH (20:14)
[2019-04-27] MEDS: Modafinil 100 MG TAB PER TUBE SCH (05:31)
[2019-04-27] MEDS: Docusate Sodium 100 MG/10 ML UDCUP PER TUBE SCH ×3 (09:25→20:43)
[2019-04-27] MEDS: Ascorbic Acid 500 mg Chewable Tablet PER TUBE SCH (09:25)
[2019-04-27] MEDS: Aspirin Chewable 81 MG TAB PER TUBE SCH (09:25)
[2019-04-27] MEDS: Metoprolol Tartrate 50 MG TAB PO SCH ×2 (09:26→20:43)
[2019-04-27] MEDS: Famotidine 20 MG TAB PER TUBE SCH ×2 (09:26→20:43)
[2019-04-27] MEDS: Pantoprazole 40 MG GRANULES PACKET PER TUBE SCH (09:26)
[2019-04-27] MEDS: D MANNOSE PER TUBE SCH (09:27)
[2019-04-27] MEDS: Polyethylene Glycol 3350 17 GM Packet PER TUBE SCH (09:27)
[2019-04-27] MEDS: Venlafaxine HCl 25 MG TAB PER TUBE SCH (09:27)
[2019-04-27] MEDS: Tamsulosin HCl 0.4 MG CAP PO SCH (09:27)
[2019-04-27] MEDS: Multivitamins CHEW w/Iron Tablet PER TUBE SCH (09:29)
[2019-04-27] MEDS: Acetaminophen 500 MG TAB PO PRN (09:30)
--- NOTE | 2019-04-27 11:20 | PRG ---
DATE OF SERVICE: 04/27/2019 SUBJECTIVE: Mr. Zurita is a 63-year-old white male, who unfortunately had a glioblastoma. It was removed by Dr. Chavez on 05/26/2018. Postoperatively, he did well and was discharged home. About a week later, the patient was readmitted with Serratia meningitis. He was treated with IV antibiotics, was very weak and therefore transferred to LT for continued long-term care and therapy. Unfortunately, he bounced back and forth between acute care hospitals and LTAC secondary to sepsis and CVAs. His last urinary tract infection sepsis was accompanied by a significant CVA and at this time, he was transferred to [facility] after stabilized for PT, OT, and speech therapy. The patient had a slow day yesterday and was poorly responsive. He is much more responsive this morning and said a couple of words, but not back to his normal half sentences. OBJECTIVE: VITAL SIGNS: Today reveal blood pressure slightly elevated this morning at 160/82, last night 147/77. Pulse 91 to 109, respirations 18 to 20, O2 saturation 95% to 99%, T-max 98.5. GENERAL: On physical exam, this is a well-developed, well-nourished, very pleasant, 63-year-old, white male, in no apparent distress at this time. HEENT: Reveals normocephalic and nontraumatic cranium. Pupils are equally round and reactive. Extraocular movements intact. Nose and throat are slightly dry. NECK: Supple without masses, nodes, or bruits. CHEST: Clear to auscultation. HEART: Reveals a regular rate and rhythm without murmurs, gallops, or rubs. ABDOMEN: Soft and nontender without organomegaly. Normal bowel sounds are noted in all 4 quadrants. No rebound or guarding is noted. : Deferred. EXTREMITIES: Reveal no clubbing, cyanosis, or edema. The patient continues to have some right-sided weakness, status post his glioblastoma surgery. ASSESSMENT: 1. Status post removal of glioblastoma on 05/26/2018. 2. Hypertension. 3. Dysphagia. 4. Right-sided weakness. 5. Somnolence. 6. Hyperlipidemia. 7. Hyperglycemia. 8. Metabolic encephalopathy, much improved. 9. PEG tube feedings, which are now being moved to bolus feedings. 10. Hydrocephalus, status post shunt. PLAN: 1. The patient will receive bolus feedings at this time. We will see how he tolerates that. 2. Continue monitor the patient's blood pressure closely. 3. Monitor the patient since he is off his baclofen secondary to lethargy. 4. Continue to monitor the patient's diabetes with Accu-Cheks before meals and at bedtime. 5. Continue aggressive physical therapy and occupational therapy. 6. Make sure the patient gets out of bed daily, if it needs to be, use with a Hueyn lift. 7. Continue D-mannose b.i.d. per the patient's 's request. 8. Continue PT and OT. 9. Continue speech therapy. Job ID: [id number]
[2019-04-27 15:10] LABS: Bilirubin Negative (Negative); Blood, Urine Moderate (Negative); Clarity Clear (Clear); Glucose, Urine (Dipstick) Negative (Negative); Leukocyte Large (Negative); Nitrite Negative (Negative); Protein, Urine (Dipstick) 100 mg/dL (Neg-Trace); Urobilinogen 0.2 mg/dL (Less than 2)
[2019-04-27 15:29] LABS: Bacteria/HPF 2+ HPF (None Seen); Squamous Epithelial 0-3 HPF (0-3); WBC/HPF Greater Than 50 HPF (0-3)
[2019-04-27] MEDS: Atorvastatin Calcium 20 MG TAB PER TUBE SCH (20:43)
[2019-04-27] MEDS: Enoxaparin Sodium 40 MG/0.4 ML SYRINGE SC SCH (20:43)
[2019-04-28] MEDS: Modafinil 100 MG TAB PER TUBE SCH (05:49)
[2019-04-28 06:08] LABS: #Eosinphils 0.3 thou/uL (0.0-0.7); #Lymphocytes 1.8 thou/uL (1.20-3.40); #Monocytes 0.5 thou/uL (0.11-0.59); #Neutrophils 4.2 thou/uL (1.40-6.50); %Basophils 0.6 % (0.0-1.0); %Eosinophils 3.9 % (0.0-10.0); %Lymphocytes 26.6 % (21.0-51.0); %Monocytes 7.1 % (0.0-10.0); %Neutrophils 61.8 % (42.0-75.0); Hemoglobin 10.3 g/dL (14.0-18.0); Mean Corpuscular HGB CONC 32.2 g/dL (32.0-36.0); Mean Corpuscular Hemoglobin 29.2 pg (27.0-31.0); Mean Corpuscular Volume 90.6 fL (78.0-98.0); Platelet Count 209 thou/uL (130-400); RBC Distribution Width 14.3 % (11.5-14.5); Red Blood Cell (RBC) Count 3.52 mill/uL (4.70-6.10); White Blood Cell (WBC) Count 6.8 thou/uL (4.8-10.8)
[2019-04-28 06:24] LABS: ALT (SGPT) 38 U/L (8-55); AST (SGOT) 24 U/L (5-34); Albumin 3.4 g/dL (3.4-4.8); Alkaline Phosphatase 117 U/L (40-110); Anion Gap 14 mmol/L (10-20); BUN (Urea Nitrogen) 22 mg/dL (8.4-25.7); Bilirubin, Total 0.3 mg/dL (0.2-1.2); Calc. Creatinine Clearance 106 mL/min (70-130); Calcium 10.1 mg/dL (7.8-10.44); Carbon Dioxide 28 mmol/L (23-31); Chloride 100 mmol/L (98-107); Estimated GFR-MDRD Greater than 90; Globulin 3.3 g/dL (2.4-3.5); Glucose 100 mg/dL (80-115); Protein, Total 6.7 g/dL (5.8-8.1); Sodium 138 mmol/L (136-145)
[2019-04-28] MEDS: Venlafaxine HCl 25 MG TAB PER TUBE SCH (09:39)
[2019-04-28] MEDS: Polyethylene Glycol 3350 17 GM Packet PER TUBE SCH (09:39)
[2019-04-28] MEDS: Multivitamins CHEW w/Iron Tablet PER TUBE SCH (09:40)
[2019-04-28] MEDS: Metoprolol Tartrate 50 MG TAB PO SCH ×2 (09:40→20:40)
[2019-04-28] MEDS: Acetaminophen 500 MG TAB PO PRN (09:40)
[2019-04-28] MEDS: Pantoprazole 40 MG GRANULES PACKET PER TUBE SCH (09:40)
[2019-04-28] MEDS: Aspirin Chewable 81 MG TAB PER TUBE SCH (09:40)
[2019-04-28] MEDS: Docusate Sodium 100 MG/10 ML UDCUP PER TUBE SCH ×3 (09:40→20:41)
[2019-04-28] MEDS: Tamsulosin HCl 0.4 MG CAP PO SCH (09:40)
[2019-04-28] MEDS: Ascorbic Acid 500 mg Chewable Tablet PER TUBE SCH (09:40)
[2019-04-28] MEDS: Famotidine 20 MG TAB PER TUBE SCH ×2 (09:40→20:40)
[2019-04-28] MEDS: D MANNOSE PER TUBE SCH (09:41)
--- NOTE | 2019-04-28 15:25 | PRG ---
DATE OF SERVICE: 04/28/2019 SUBJECTIVE: Mr. Zurita is a 63-year-old white male, who unfortunately had a glioblastoma that had to be removed by Dr. Chavez on 05/26/2018. Postoperatively, he did well and discharged home. A week later, he was re-admitted to the hospital with Serratia meningitis. Treated with IV antibiotics. Because he was so weak, he was transferred to [facility] for continued long-term care and therapy. Unfortunately, he had to be admitted back and forth between acute care hospital and [facility] and here because of his multiple episodes of urosepsis and CVAs. His last admission was at [facility] in [place], where he had urosepsis again and had a CVA. He was transferred to [facility] after being stabilized. He was transferred here for PT, OT, and speech therapy. OBJECTIVE: VITAL SIGNS: Today reveal blood pressure 154/83, pulse 60 to 97, respirations 16 to 20, O2 saturation 96% to 98% on room air, T-max 97.8. GENERAL: This is a well-developed, well-nourished, very pleasant, white male, who answers in one or two words to me this afternoon. His mom and dad are here. HEENT: Reveals normocephalic and nontraumatic cranium. Pupils are equal, round, and reactive. Extraocular movements are intact. Nose and throat are dry. NECK: Supple without masses, nodes, or bruits. CHEST: Clear to auscultation. HEART: Reveals a regular rate and rhythm without murmurs, gallops, or rubs. ABDOMEN: Soft and nontender without organomegaly. Normal bowel sounds are noted in all 4 quadrants. No rebound or guarding is noted. : Deferred. EXTREMITIES: Reveal no clubbing, cyanosis, or edema. The patient continues to have right-sided weakness. He continues to need some type of physical therapy and occupational therapy, but unfortunately, he is not progressing well enough to stay here. ASSESSMENT: 1. Status post removal of glioblastoma on 05/26/2018. 2. Hypertension. 3. Dysphagia. 4. Right-sided weakness. 5. Somnolence. 6. Hyperlipidemia. 7. Hyperglycemia. 8. Metabolic encephalopathy. 9. PEG tube feedings, which have been moved to bolus feedings. 10. Hydrocephalus, status post shunt. 11. The patient has not progressed enough on therapy here to stay, so he will be transferred. 12. The patient's is looking for a place to transfer the patient. PLAN OF TREATMENT: 1. Continue bolus feedings at this time. 2. Continue to monitor the patient's blood pressure closely. 3. Monitor the patient's diabetes with Accu-Cheks a.c. and at bedtime. 4. Continue some type of therapy and occupational therapy and speech therapy at a lesser intense facility. 5. Continue to get the patient out of bed daily even if you need a Huyen lift to lift the patient down. 6. Continue D-mannose b.i.d., per the patient's request. 7. Continue physical therapy, occupational therapy, and speech therapy at a different facility when the patient is admitted. 8. The patient's is looking for a new setting for the patient. Job ID: [id number]
[2019-04-28] MEDS: Atorvastatin Calcium 20 MG TAB PER TUBE SCH (20:40)
[2019-04-28] MEDS: Enoxaparin Sodium 40 MG/0.4 ML SYRINGE SC SCH (20:40)
[2019-04-29] MEDS: Modafinil 100 MG TAB PER TUBE SCH (06:21)
[2019-04-29] MEDS: Polyethylene Glycol 3350 17 GM Packet PER TUBE SCH (09:11)
[2019-04-29] MEDS: Docusate Sodium 100 MG/10 ML UDCUP PER TUBE SCH ×3 (09:12→22:06)
[2019-04-29] MEDS: Metoprolol Tartrate 50 MG TAB PO SCH ×2 (09:12→22:06)
[2019-04-29] MEDS: Multivitamins CHEW w/Iron Tablet PER TUBE SCH (09:12)
[2019-04-29] MEDS: Famotidine 20 MG TAB PER TUBE SCH ×2 (09:12→22:06)
[2019-04-29] MEDS: Ascorbic Acid 500 mg Chewable Tablet PER TUBE SCH (09:12)
[2019-04-29] MEDS: Aspirin Chewable 81 MG TAB PER TUBE SCH (09:12)
[2019-04-29] MEDS: Pantoprazole 40 MG GRANULES PACKET PER TUBE SCH (09:12)
[2019-04-29] MEDS: Venlafaxine HCl 25 MG TAB PER TUBE SCH (09:12)
[2019-04-29] MEDS: Tamsulosin HCl 0.4 MG CAP PO SCH (09:12)
[2019-04-29] MEDS: D MANNOSE PER TUBE SCH (09:13)
--- NOTE | 2019-04-29 18:59 | PRG ---
DATE OF SERVICE: 04/29/2019 SUBJECTIVE: Mr. Zurita is a very pleasant 63-year-old white male, who was found to have a glioblastoma and had it removed by Dr. Chavez on 03/25/2019. Postoperatively, he did well, was discharged home, a week later readmitted with Serratia meningitis. He was admitted back to the hospital, treated with IV antibiotics and eventually transferred to [facility] for continued long-term care and therapy. He was bounced between here, [facility] and acute care hospital for multiple urinary tract infections, sepsis, pneumonias, and CVAs. He was last transferred from [facility] in [place] to [facility] for physical therapy and occupational therapy after urosepsis and other CVA. Basically, he was nonverbal when I saw him the first day at [facility]. Since then, he has gradually and slowly improved. OBJECTIVE: VITAL SIGNS: Reveal blood pressure somewhat elevated this morning 166/89, pulse 88 to 104, respirations 18, O2 saturation 96% on room air, and T-max 98.2. GENERAL: This is a well-developed, well-nourished, somewhat sleepy white male this morning. HEENT: Normocephalic and nontraumatic cranium. Pupils are equally round and reactive. Extraocular movements intact. Nose and throat are slightly dry. NECK: Supple without masses, nodes, or bruits. CHEST: Clear with shallow breath sounds, but no congestion, rales, rhonchi, or wheezes are heard. HEART: Reveals a regular rate and rhythm without murmurs, gallops, or rubs. ABDOMEN: Soft and nontender. PEG tube is being used for bolus feedings. It is flowing freely. : Deferred. Urine is still clear and yellow. EXTREMITIES: Reveal no clubbing, cyanosis, or edema. The patient continues with right-sided weakness. The patient was evaluated yesterday by PT and OT and felt that most likely he would need to be moved to a SNF unit since he is not progressing well. DIAGNOSTIC STUDIES: Laboratory yesterday revealed white count of 6800, hemoglobin 10.3, hematocrit 31.9, and platelet count 209,000. Chemistry reveals sodium 138, potassium 4.0, chloride 100, carbon dioxide 30 with a BUN of 22, creatinine 0.7, and GFR greater than 90. ASSESSMENT: 1. Status post removal of glioblastoma on 05/26/2018. 2. Hypertension. 3. Dysphagia. 4. Right-sided weakness. 5. Somnolence. 6. Hyperlipidemia. 7. Hyperglycemia. 8. Metabolic encephalopathy, which is improved. 9. PEG tube feedings with bolus feedings. 10. Hydrocephalus, status post shunt. 11. The patient has had poor progression with physical therapy and occupational therapy. 12. The patient's is looking transfer for the patient to SNF. PLAN: 1. Continue bolus feedings at this time. 2. Continue physical therapy and occupational therapy until the patient's transfer next week. 3. The plan is to transfer the patient next Friday or Friday to [facility]. 4. Continue to monitor the patient's diabetes with Accu-Cheks before meals and at bedtime. 5. Continue to monitor the patient's blood pressure closely and adjust medications as needed. 6. The patient gets out of bed daily even if he needs to have a Huyen lift to do that. 7. Continue D-mannose b.i.d. per the patient's 's request. 8. Continue speech therapy. Job ID: [id number]
[2019-04-29] MEDS: Enoxaparin Sodium 40 MG/0.4 ML SYRINGE SC SCH (22:06)
[2019-04-29] MEDS: Atorvastatin Calcium 20 MG TAB PER TUBE SCH (22:06)
[2019-04-30] MEDS: Modafinil 100 MG TAB PER TUBE SCH (06:24)
[2019-04-30] MEDS: Docusate Sodium 100 MG/10 ML UDCUP PER TUBE SCH ×4 (08:54→22:04)
[2019-04-30] MEDS: Pantoprazole 40 MG GRANULES PACKET PER TUBE SCH (08:54)
[2019-04-30] MEDS: Polyethylene Glycol 3350 17 GM Packet PER TUBE SCH ×2 (08:54→09:00)
[2019-04-30] MEDS: Venlafaxine HCl 25 MG TAB PER TUBE SCH (08:54)
[2019-04-30] MEDS: D MANNOSE PER TUBE SCH (08:54)
[2019-04-30] MEDS: Famotidine 20 MG TAB PER TUBE SCH ×2 (08:55→22:03)
[2019-04-30] MEDS: Aspirin Chewable 81 MG TAB PER TUBE SCH (08:55)
[2019-04-30] MEDS: Metoprolol Tartrate 50 MG TAB PO SCH ×2 (08:55→22:03)
[2019-04-30] MEDS: Ascorbic Acid 500 mg Chewable Tablet PER TUBE SCH (08:55)
[2019-04-30] MEDS: Multivitamins CHEW w/Iron Tablet PER TUBE SCH (08:55)
[2019-04-30] MEDS: Tamsulosin HCl 0.4 MG CAP PO SCH (08:55)
[2019-04-30] MEDS: Ondansetron ODT 4 MG TAB PO PRN (15:20)
[2019-04-30] MEDS: Enoxaparin Sodium 40 MG/0.4 ML SYRINGE SC SCH (22:03)
[2019-04-30] MEDS: Atorvastatin Calcium 20 MG TAB PER TUBE SCH (22:03)
[2019-05-01 05:27] LABS: #Eosinphils 0.2 thou/uL (0.0-0.7); #Lymphocytes 1.7 thou/uL (1.20-3.40); #Monocytes 0.5 thou/uL (0.11-0.59); %Basophils 0.7 % (0.0-1.0); %Eosinophils 2.7 % (0.0-10.0); %Lymphocytes 26.2 % (21.0-51.0); %Monocytes 8.2 % (0.0-10.0); %Neutrophils 62.3 % (42.0-75.0); Mean Corpuscular HGB CONC 33.1 g/dL (32.0-36.0); Mean Corpuscular Hemoglobin 29.6 pg (27.0-31.0); Mean Corpuscular Volume 89.5 fL (78.0-98.0); Mean Platelet Volume 8.4 fL (7.4-10.4); Platelet Count 204 thou/uL (130-400); RBC Distribution Width 14.2 % (11.5-14.5); Red Blood Cell (RBC) Count 3.38 mill/uL (4.70-6.10); White Blood Cell (WBC) Count 6.4 thou/uL (4.8-10.8)
[2019-05-01] MEDS: Modafinil 100 MG TAB PER TUBE SCH (06:07)
[2019-05-01] MEDS: Famotidine 20 MG TAB PER TUBE SCH ×2 (09:07→21:20)
[2019-05-01] MEDS: Aspirin Chewable 81 MG TAB PER TUBE SCH (09:07)
[2019-05-01] MEDS: Ascorbic Acid 500 mg Chewable Tablet PER TUBE SCH (09:07)
[2019-05-01] MEDS: Docusate Sodium 100 MG/10 ML UDCUP PER TUBE SCH ×3 (09:07→21:20)
[2019-05-01] MEDS: Multivitamins CHEW w/Iron Tablet PER TUBE SCH (09:08)
[2019-05-01] MEDS: Metoprolol Tartrate 50 MG TAB PO SCH ×2 (09:08→21:20)
[2019-05-01] MEDS: Pantoprazole 40 MG GRANULES PACKET PER TUBE SCH (09:08)
[2019-05-01] MEDS: D MANNOSE PER TUBE SCH (09:08)
[2019-05-01] MEDS: Polyethylene Glycol 3350 17 GM Packet PER TUBE SCH (09:08)
[2019-05-01] MEDS: Tamsulosin HCl 0.4 MG CAP PO SCH (09:09)
[2019-05-01] MEDS: Venlafaxine HCl 25 MG TAB PER TUBE SCH (09:09)
--- NOTE | 2019-05-01 11:23 | PRG ---
DATE OF SERVICE: 05/01/2019 SUBJECTIVE: Mr. Zurita is resting in bed, doing the same. His spouse is in the room. He apparently had some urine culture and labs done because of some decrease in his alertness. His white count is 6.4, H and H are 10 and 30.3. Sodium 138, potassium 4.0, BUN and creatinine are 22 and 1.74, this is from April 28. He also had a urine culture done, which on April 06, grew Pseudomonas greater than 100,000, and at this time, it is growing VRE, which is 75,000 to 100,000 as [address] as Pseudomonas. Dr. Carreon stated that apparently Dr. Shaw felt that this was all colonization and he did not recommend any treatment unless the patient had clinical signs of infection. No fever, no chills. Urine is clear. OBJECTIVE: VITAL SIGNS: He is afebrile. Heart rate 89, respirations 22, oxygen saturation 96% on room air, blood pressure 156/83. CARDIOVASCULAR: S1, S2 plus. RESPIRATORY: Normal vesicular breath sounds. ABDOMEN: Soft, nontender. Bowel sounds heard in all quadrants. PEG tube site is healthy. EXTREMITIES: Without cyanosis or clubbing. CENTRAL NERVOUS SYSTEM: Residual deficits from his hydrocephalus and recent CVA. IMPRESSION: 1. Hypertension. 2. Dyslipidemia. 3. Muscle spasticity. 4. Benign prostatic hypertrophy. 5. History of recurrent UTI and possible colonization with no clinical signs of infection. 6. Hydrocephalus. 7. Recent cerebrovascular accident. PLAN: 1. Continue current medications. 2. Nutritional support with tube feeds and aspiration precautions. 3. PEG tube care. 4. DVT prophylaxis with Lovenox. 5. Decubitus precautions. 6. Stress ulcer prophylaxis. 7. Physical therapy. 8. Discharge planning. Job ID: [id number]
[2019-05-01] MEDS: Atorvastatin Calcium 20 MG TAB PER TUBE SCH (21:20)
[2019-05-01] MEDS: Enoxaparin Sodium 40 MG/0.4 ML SYRINGE SC SCH (21:20)
[2019-05-02 05:48] VITALS: BMI 22.5
[2019-05-02] MEDS: Modafinil 100 MG TAB PER TUBE SCH (06:14)
[2019-05-02] MEDS: Docusate Sodium 100 MG/10 ML UDCUP PER TUBE SCH ×3 (09:12→21:17)
[2019-05-02] MEDS: Aspirin Chewable 81 MG TAB PER TUBE SCH (09:12)
[2019-05-02] MEDS: Ascorbic Acid 500 mg Chewable Tablet PER TUBE SCH (09:12)
[2019-05-02] MEDS: Famotidine 20 MG TAB PER TUBE SCH ×2 (09:12→21:17)
[2019-05-02] MEDS: Tamsulosin HCl 0.4 MG CAP PO SCH (09:13)
[2019-05-02] MEDS: Multivitamins CHEW w/Iron Tablet PER TUBE SCH (09:13)
[2019-05-02] MEDS: Metoprolol Tartrate 50 MG TAB PO SCH ×2 (09:13→21:17)
[2019-05-02] MEDS: D MANNOSE PER TUBE SCH (09:13)
[2019-05-02] MEDS: Pantoprazole 40 MG GRANULES PACKET PER TUBE SCH (09:13)
[2019-05-02] MEDS: Polyethylene Glycol 3350 17 GM Packet PER TUBE SCH (09:14)
[2019-05-02] MEDS: Venlafaxine HCl 25 MG TAB PER TUBE SCH (09:14)
--- NOTE | 2019-05-02 13:01 | PRG ---
DATE OF SERVICE: 05/02/2019 SUBJECTIVE: Mr. Zurita is sleeping and arousable. He is very minimally verbal, is not in any distress. No family at bedside. Discussed with nursing. OBJECTIVE: VITAL SIGNS: He is afebrile, heart rate 112, respirations 20, oxygen saturation 96% on room air, blood pressure 140/84. CARDIOVASCULAR SYSTEM: S1 and S2 plus. RESPIRATORY SYSTEM: Normal vesicular breath sounds. ABDOMEN: Soft and nontender. Bowel sounds heard in all quadrants. PEG tube site is healthy. EXTREMITIES: Without cyanosis or clubbing. CENTRAL NERVOUS SYSTEM: Significant deficits from his hydrocephalus and recent CVA. IMPRESSION: 1. Hypertension. 2. Dyslipidemia. 3. Benign prostatic hypertrophy. 4. Hydrocephalus. 5. Recent cerebrovascular accident. 6. Dysphagia, requiring percutaneous endoscopic gastrostomy tube placement. PLAN: 1. Continue current medications. 2. Nutritional support and PEG tube care. 3. DVT prophylaxis with Lovenox. 4. Decubitus precautions. 5. Stress ulcer prophylaxis. 6. Therapy. 7. Discharge planning. 8. Dr. Carreon [facility]. Job ID: [id number]
[2019-05-02] MEDS: Enoxaparin Sodium 40 MG/0.4 ML SYRINGE SC SCH (21:17)
[2019-05-02] MEDS: Atorvastatin Calcium 20 MG TAB PER TUBE SCH (21:17)
[2019-05-03] MEDS: Modafinil 100 MG TAB PER TUBE SCH (06:04)
--- NOTE | 2019-05-03 07:49 | PRG ---
DATE OF SERVICE: 04/30/2019 SUBJECTIVE: Mr. Zurita is a very pleasant 63-year-old white male, found to have a glioblastoma. It was removed by Dr. Chavez on 03/25/2019. Postoperatively, he was discharged home, and a week later, readmitted with Serratia meningitis. He was admitted back to the hospital, treated with IV antibiotics. Eventually, he was stabilized and transferred to [facility] in the [place] area. Unfortunately, he transferred from [facility] back and forth to the hospital secondary to urosepsis, urinary tract infection, pneumonia, aspiration, and CVAs. Most recently, he was at [facility] in [place], transferred to [facility] for PT and OT after having urosepsis and another CVA. Basically, he was nonverbal when he came to [facility]. He is now able to speak one words occasionally if he is awake. He is slowly improving, but is not qualified to stay in the hospital. His is making arrangements to transfer him to [facility] for further care. OBJECTIVE: VITAL SIGNS: Today reveal blood pressure 140/74, pulse 70 to 90, respirations 18, O2 saturation 95% to 97% on room air, and T-max 98.3. GENERAL: This is a well-developed, well-nourished, pleasant white male, who is found sitting up in his wheelchair sleeping. I did arouse him gently and he recognized me. I asked him if he had any pain, he says not really. He does know where he is. He knows his is not here today. He nods yes or no or answers yes or no or one-word responses. HEENT: Reveals normocephalic and nontraumatic cranium. Pupils are equal, round, and reactive. Extraocular movements are intact. Nose and throat are dry. NECK: Supple without masses, nodes, or bruits. CHEST: Clear to auscultation. No rales, no rhonchi, no wheezes are heard. No cough is noted. HEART: Reveals a regular rate and rhythm without murmurs, gallops, or rubs. ABDOMEN: Soft, nontender without organomegaly. Normal bowel sounds are noted. No rebound or guarding is noted. : Deferred. Urine still clear. EXTREMITIES: Reveal no clubbing, cyanosis, or edema. The patient continues with right-sided weakness. 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 He is moving to SNF, most likely [facility] on Friday. ASSESSMENT: 1. Status post removal of glioblastoma on 03/25/2019. 2. Hypertension. 3. Right-sided weakness. 4. Dysphagia. 5. Somnolence. 6. Hyperlipidemia. 7. Hyperglycemia at times. 8. Metabolic encephalopathy, improved. 9. PEG tube feedings with bolus feedings at this time. 10. Hydrocephalus, status post shunt. 11. The patient unfortunately has poor progression with his physical therapy and occupational therapy. 12. The patient is planning to be transferred to [facility] on Friday. PLAN: 1. Continue bolus feedings at this time. 2. Continue PT and OT until transfer. 3. Arrangement for being transferred next Friday or Friday to [facility]. 4. Monitor the patient's diabetes with Accu-Cheks a.c. and h.s. 5. Continue to monitor the patient's blood pressure closely and adjust medications as needed. 6. Make sure the patient gets out of bed every day even if we have to use a Huyen lift to do that. 7. Continue D-mannose b.i.d. per the patient's 's request. 8. Continue speech therapy. Job ID: [id number]
[2019-05-03] MEDS: Polyethylene Glycol 3350 17 GM Packet PER TUBE SCH (09:32)
[2019-05-03] MEDS: Docusate Sodium 100 MG/10 ML UDCUP PER TUBE SCH ×3 (09:32→20:08)
[2019-05-03] MEDS: Venlafaxine HCl 25 MG TAB PER TUBE SCH (09:33)
[2019-05-03] MEDS: Ascorbic Acid 500 mg Chewable Tablet PER TUBE SCH (09:33)
[2019-05-03] MEDS: Pantoprazole 40 MG GRANULES PACKET PER TUBE SCH (09:33)
[2019-05-03] MEDS: Metoprolol Tartrate 50 MG TAB PO SCH ×2 (09:33→20:09)
[2019-05-03] MEDS: Tamsulosin HCl 0.4 MG CAP PO SCH (09:34)
[2019-05-03] MEDS: Aspirin Chewable 81 MG TAB PER TUBE SCH (09:34)
[2019-05-03] MEDS: Famotidine 20 MG TAB PER TUBE SCH ×2 (09:34→20:09)
[2019-05-03] MEDS: Multivitamins CHEW w/Iron Tablet PER TUBE SCH (09:35)
[2019-05-03] MEDS: Acetaminophen 500 MG TAB PO PRN ×2 (09:37→18:28)
[2019-05-03] MEDS: D MANNOSE PER TUBE SCH (09:37)
--- NOTE | 2019-05-03 19:30 | PRG ---
DATE OF SERVICE: 05/03/2019 SUBJECTIVE: Mr. Zurita is a pleasant 63-year-old white male, found to have a glioblastoma, removed by Dr. Chavez on 03/25/2019. Unfortunately, postoperatively, he developed a Serratia meningitis, had to be readmitted to the hospital for IV antibiotics. Eventually, he was transferred to LTAC in [facility]. He was transferred back and forth from LTAC to acute care to here. He was having urosepsis, urinary tract infections, pneumonia, aspiration, and CVAs. Most recently, he was at [facility] in [place]. After he was stabilized, he was transferred to [facility] after having urosepsis and another CVA. He is basically nonverbal when he came here. Slowly, he is improving. This morning when I saw him, the patient did answer my questions fairly well. He asked me 2- or 3-word questions. He is much more vocal than he was last week at the end of the week. OBJECTIVE: VITAL SIGNS: Today reveal blood pressure this morning 143/88, pulse 111, respirations 20, O2 saturation 97% to 98% on room air, T-max 97.4. The patient states he is not hurting today. He states he is feeling a little stronger. He has no concerns or complaints. GENERAL: This is a well-developed, well-nourished, thin, 63-year-old, white male, in no apparent distress at this time. HEENT: Reveals normocephalic and nontraumatic cranium. Pupils are equally round and reactive. Extraocular movements are intact. Nose and throat are slightly dry. NECK: Supple without masses, nodes, or bruits. CHEST: Clear to auscultation. No rales, rhonchi, or wheezes are heard. HEART: Reveals a regular rate and rhythm without murmurs, gallops, or rubs. ABDOMEN: Soft and nontender without organomegaly. Normal bowel sounds are noted. No rebound or guarding is noted. : Deferred. EXTREMITIES: Reveal no clubbing, cyanosis, or edema. NEUROLOGIC: The patient continues with right sided weakness. He has fixed contractures in the lower extremities. His wheelchair is supposed to have some leg extensions delivered last Friday, but I do not see them in the room. He is supposed to be moving to SNF most likely tomorrow. ASSESSMENT: 1. Status post removal of glioblastoma on 03/25/2019. 2. Hypertension. 3. Right-sided weakness. 4. Dysphagia. 5. Somnolence. 6. Hyperlipidemia. 7. Hyperglycemia at times. 8. Metabolic encephalopathy, improved. 9. Percutaneous endoscopic gastrostomy. 10. Hydrocephalus, status post shunt. 11. Generalized weakness. PLAN: 1. Continue bolus feedings. 2. Continue physical therapy and occupational therapy. 3. Possible transfer tomorrow. 4. Continue to monitor the patient's diabetes with Accu-Cheks a.c. and at bedtime. 5. Monitor the patient's blood pressure closely and adjust medications as needed. 6. Get the patient out of bed at least in his wheelchair daily. 7. Continue D-mannose b.i.d. per the patient's 's request. 8. Continue speech therapy. Job ID: [id number]
[2019-05-03] MEDS: Atorvastatin Calcium 20 MG TAB PER TUBE SCH (20:08)
[2019-05-03] MEDS: Enoxaparin Sodium 40 MG/0.4 ML SYRINGE SC SCH (20:10)
[2019-05-04] MEDS: Modafinil 100 MG TAB PER TUBE SCH (06:07)
[2019-05-04 08:49] VITALS: BP 139/86; TEMP 96.6
[2019-05-04] MEDS: Docusate Sodium 100 MG/10 ML UDCUP PER TUBE SCH (10:07)
[2019-05-04] MEDS: Venlafaxine HCl 25 MG TAB PER TUBE SCH ×2 (10:07→10:09)
[2019-05-04] MEDS: Tamsulosin HCl 0.4 MG CAP PO SCH (10:08)
[2019-05-04] MEDS: Ascorbic Acid 500 mg Chewable Tablet PER TUBE SCH (10:08)
[2019-05-04] MEDS: Famotidine 20 MG TAB PER TUBE SCH (10:08)
[2019-05-04] MEDS: Metoprolol Tartrate 50 MG TAB PO SCH (10:09)
[2019-05-04] MEDS: Multivitamins CHEW w/Iron Tablet PER TUBE SCH (10:09)
[2019-05-04] MEDS: Aspirin Chewable 81 MG TAB PER TUBE SCH (10:10)
[2019-05-04] MEDS: Polyethylene Glycol 3350 17 GM Packet PER TUBE SCH (10:10)
[2019-05-04] MEDS: Pantoprazole 40 MG GRANULES PACKET PER TUBE SCH (10:10)
[2019-05-04] MEDS: D MANNOSE PER TUBE SCH (10:10)
--- NOTE | 2019-05-05 05:12 | DIS ---
DATE OF ADMISSION: 04/06/2019 DATE OF DISCHARGE: 05/04/2019 HISTORY OF PRESENT ILLNESS: Mr. Zurita is a very pleasant 63-year-old white male, who was admitted initially to [facility] with glioblastoma. Dr. Chavez removed a large glioblastoma on 05/26/2018. Postoperatively, he did very well, was sent home. Unfortunately, he returned to the hospital Emergency Room approximately 1 week later with Serratia marcescens meningitis. He was treated with IV antibiotics, stabilized and then transferred to an LTAC unit in the [facility]. Unfortunately, he had multiple relapses with urinary tract infections, aspiration pneumonia, CVAs, and he was transferred back and forth from LTAC to acute care hospitals. Eventually, he ended up at [facility] with another urosepsis episode. He had a CVA at that time, and after that, he was transferred to [facility] for further physical therapy and occupational therapy, and treatment. The patient has been at [facility] for the past 4 weeks and has reached maximum medical benefit at this time. His has made arrangements for him to be transferred to [facility] for continued therapy. DISCHARGE MEDICATIONS: Will include the following; 1. Vitamin C 500 mg daily. 2. Aspirin 81 mg daily. 3. Baclofen 5 mg at bedtime p.r.n. muscle spasms. 4. Vitamin D two tabs per tube daily. 5. Docusate, which is Colace liquid 100 mg three times a day. 6. Metoprolol tartrate 50 mg b.i.d. 7. Provigil 200 mg daily. 8. Multivitamin daily. 9. Omeprazole 40 mg daily. 10. MiraLAX 17 g daily. 11. Simvastatin 40 mg daily. The patient's medications that have been stopped include the following 1. Amlodipine with benazepril 10/20 mg. 2. Dulcolax suppository 10 mg. 3. Diclofenac 75 mg b.i.d. 4. Enoxaparin 40 mg subcu q. 24 hours. 5. Famotidine 20 mg b.i.d. 6. Tamsulosin 0.4 mg. 7. Venlafaxine 75 mg. The patient has actually done fairly well in the hospital and has not had any further complications with urosepsis. While the patient was in the hospital, he was curbside consulted by Dr. Shaw, who felt that the patient most likely was colonized. He recommended no more antibiotics unless he had any signs or symptoms of sepsis. PHYSICAL EXAMINATION: VITAL SIGNS: This morning revealed blood pressure 139/86, pulse 98 to 112, respirations 18 to 22, O2 saturation 97% to 98% on room air, T-max 97.1. GENERAL: This is a well-developed, well-nourished, pleasant white male that this morning would talk to me in 2 and 3 word sentences. He did answer the majority of my questions, but is very hard to hear him because he speaks so softly. I had to get right up to him as he mourns and says the words. HEENT: Normocephalic and nontraumatic cranium. Pupils are equal, round, and reactive. Extraocular movements are intact. Nose and throat are clear. Craniotomy scar is well healed. NECK: Supple without masses, nodes, or bruits. CHEST: Clear to auscultation. No rales, rhonchi, wheezes, or cough is heard. HEART: Reveals a regular rate and rhythm without murmurs, gallops, or rubs. ABDOMEN: Soft, nontender without organomegaly. Normal bowel sounds are noted in all 4 quadrants. No rebound or guarding is noted. : Deferred. EXTREMITIES: Reveal no clubbing, cyanosis, or edema. NEUROLOGIC: The patient continues with right-sided weakness. He has a fixed contracture in the lower extremities that can be extended with extreme caution and constant massage and rubbing. His wheelchair has had some leg extensions that were ordered, but have not arrived yet. The patient is being transferred to [facility]. ASSESSMENT: 1. Status post removal of glioblastoma on 03/25/2019. 2. Hypertension. 3. Right-sided weakness. 4. Dysphagia. 5. Somnolence. 6. Hyperlipidemia. 7. Hyperglycemia at times. 8. Metabolic encephalopathy, improved. 9. Percutaneous endoscopic gastrostomy tube feedings. 10. Hydrocephalus, status post shunt. 11. Generalized weakness. PLAN: 1. Continue bolus feedings. 2. Continue physical therapy and occupational therapy. 3. Continue speech therapy. 4. Transfer to [facility]. 5. Continue to monitor the patient's diabetes with Accu-Cheks before meals and at bedtime. 6. Continue to monitor the patient's blood pressure closely. Adjust medications as needed. 7. The patient needs to be out of bed every day, even on weekends and may need to use a Huyen lift. 8. Continue D-mannose b.i.d. per patient's 's request. 9. I will continue to be this patient's primary care physician during his care there. Job ID: [id number]
== END 2019-05-04 13:00 | DRG 56 ==
LOC: NAV ACUTE 15:38
PROVIDERS: ADMIT Family Medicine; ATTEND Family Medicine
DX: I69.351 Hemiplegia and hemiparesis following cerebral infarction affecting right dominant side (principal); G93.41 Metabolic encephalopathy; G91.9 Hydrocephalus, unspecified; N39.0 Urinary tract infection, site not specified; R13.10 Dysphagia, unspecified; I10 Essential (primary) hypertension; E78.5 Hyperlipidemia, unspecified; R40.0 Somnolence; Z86.718 Personal history of other venous thrombosis and embolism; D64.9 Anemia, unspecified; R73.9 Hyperglycemia, unspecified; M62.838 Other muscle spasm; F32.9 Major depressive disorder, single episode, unspecified; N40.0 Benign prostatic hyperplasia without lower urinary tract symptoms; D72.829 Elevated white blood cell count, unspecified; B96.5 Pseudomonas (aeruginosa) (mallei) (pseudomallei) as the cause of diseases classified elsewhere; Z79.82 Long term (current) use of aspirin; Z79.899 Other long term (current) drug therapy; Z88.8 Allergy status to other drugs, medicaments and biological substances
CPT/HCPCS: 36415; 80053; 81001; 81015; 84134; 84443; 85007; 85025; 85027; 86140; 87077; 87086; 87186; 90471; 90686; G0008; J1650; Q0162

== ENCOUNTER 2022-03-14 14:37 | Emergency (ER) | payer BC, MEDICARE ==
[2022-03-14] MEDS ORDERED: Sodium Chloride 0.9% 1,000 ML ONE (15:17)
[2022-03-14 15:20] LABS: Bilirubin Small (Negative); Blood, Urine Moderate (Negative); Clarity Cloudy (Clear); Glucose, Urine (Dipstick) Negative (Negative); Ketone, Urine 15 mg/dL (Negative); Leukocyte Small (Negative); Nitrite Negative (Negative); Protein, Urine (Dipstick) 100 mg/dL (Neg-Trace); Urobilinogen 0.2 mg/dL (Less than 2); pH, Urine 5.5 (5.0-9.0)
[2022-03-14 15:28] LABS: Bacteria/HPF 1+ HPF (None Seen); Specific Gravity, Urine 1.037 (1.002-1.036); Squamous Epithelial 0-3 HPF (0-3); WBC/HPF Greater Than 50 HPF (0-3)
[2022-03-14 15:29] LABS: Calcium Oxalate Crystals 1+ HPF (None Seen); Yeast-Budding 3+ HPF (None Seen); Yeast-Hyphae 2+ HPF (None Seen)
== END 2022-03-14 18:03 | disposition home or self-care (01) ==
LOC: NAV ERS 14:37
DX: E86.0 Dehydration (principal); R40.0 Somnolence; E78.00 Pure hypercholesterolemia, unspecified; I10 Essential (primary) hypertension; F17.210 Nicotine dependence, cigarettes, uncomplicated
CPT/HCPCS: 81003; 81015; 87086; 96360; J7050